=== PATIENT | female | born 1940 | race Caucasian/White ===

== ENCOUNTER 2017-05-18 10:07 | Outpatient (CLI) | payer MEDICARE ==
--- NOTE | 2017-05-18 11:58 | ULT ---
ULTRASOUND ABDOMEN COMPLETE: HISTORY: 77-year-old female with nausea and vomiting. R11.2 FINDINGS: Liver: Normal echogenicity and size. Gallbladder: There are several moderately large gallstones, each on the order of approximately 25 mm. Gallbladder lumen is mildly distended. Gallbladder wall is borderline thickened to approximately 3 m m. No sonographic Ackerman's sign. No pericholecystic fluid. Common duct: 6 mm Spleen: No splenomegaly. Pancreas: Nonspecific sonographic appearance. Kidneys: No hydronephrosis. Tiny echogenic foci at the bilateral kidneys may or may not represent wendy culi. Abdominal aorta: Extensive atherosclerotic calcification. There is a focal saccular small aneurysm pr otruding anteriorly from the midabdominal aorta. The neck of the aneurysm is approximately 1.5 to 2 c m. The anteroposterior dimension of the aneurysm measured from the anterior surface of the nondilated portion of the abdominal aorta, is approximately 1 cm. The overall anteroposterior dimension of the abdominal aorta including the saccular aneurysm, is approximately 2.5 cm. There is no fusiform aneury sm, (defined as 3 centimeter or larger). Inferior vena cava: Unremarkable. IMPRESSION: 1. 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 2. Positive for cholelithiasis, with moderately large gallstones. PRECIOUS Maldon[place] POS: [facility]
== END 2017-05-18 10:08 | disposition home or self-care (01) ==
LOC: ULT 10:07
PROVIDERS: ATTEND Internal Medicine
DX: R11.2 Nausea with vomiting, unspecified (principal); I71.4 Abdominal aortic aneurysm, without rupture; K80.20 Calculus of gallbladder without cholecystitis without obstruction; K80.80 Other cholelithiasis without obstruction
CPT/HCPCS: 76700

== ENCOUNTER 2018-03-26 14:09 | Outpatient (CLI) | payer MEDICARE ==
[2018-03-26 15:45] LABS: #Basophils 0.1 thou/uL (0.0-0.2); #Eosinphils 0.3 thou/uL (0.0-0.7); #Lymphocytes 3.1 thou/uL (1.20-3.40); #Monocytes 0.7 thou/uL (0.11-0.59); #Neutrophils 5.6 thou/uL (1.40-6.50); %Basophils 0.7 % (0.0-1.0); %Lymphocytes 31.8 % (21.0-51.0); %Monocytes 7.4 % (0.0-10.0); %Neutrophils 57.1 % (42.0-75.0); Hemoglobin 12.3 g/dL (12.0-16.0); Mean Corpuscular Hemoglobin 28.6 pg (27.0-31.0); Mean Corpuscular Volume 89.4 fL (78.0-98.0); Mean Platelet Volume 7.5 fL (7.4-10.4); Platelet Count 233 thou/uL (130-400); RBC Distribution Width 13.3 % (11.5-14.5); Red Blood Cell (RBC) Count 4.29 mill/uL (4.20-5.40); White Blood Cell (WBC) Count 9.8 thou/uL (4.8-10.8)
[2018-03-26 16:07] LABS: Anion Gap 14 mmol/L (10-20); BUN (Urea Nitrogen) 14 mg/dL (9.8-20.1); Calc. Creatinine Clearance 0 mL/min (70-130); Carbon Dioxide 24 mmol/L (23-31); Chloride 108 mmol/L (98-107); Estimated GFR-MDRD 68; Glucose 89 mg/dL (83-110); Sodium 141 mmol/L (136-145)
--- NOTE | 2018-03-27 12:51 | EKG ---
Test Reason : Blood Pressure : / mmHG Vent. Rate : 060 BPM Atrial Rate : 060 BPM P-R Int : 192 ms QRS Dur : 094 ms QT Int : 418 ms P-R-T Axes : -18 009 054 degrees QTc Int : 418 ms Normal sinus rhythm Cannot rule out Inferior infarct (cited on or before 07-OCT-2014) Cannot rule out Anterior infarct , age undetermined Abnormal ECG Confirmed by CK AOCSTA ([id number]) on 03/27/2018 12:50:50 PM Referred By: SHIRA Confirmed By:CK ACOSTA
== END 2018-03-26 14:10 | disposition home or self-care (01) ==
LOC: LABBT 14:09
PROVIDERS: ATTEND Internal Medicine Cardiovascular Disease
DX: Z01.818 Encounter for other preprocedural examination (principal); I35.0 Nonrheumatic aortic (valve) stenosis
CPT/HCPCS: 80048; 85025; 93005; 93010

== ENCOUNTER 2018-03-28 06:31 | Day surgery (SDC) | payer MEDICARE ==
[2018-03-26 14:30] VITALS: BMI 21.4
[2018-03-28] MEDS ORDERED: PROPOFOL 40 ML ONE (07:13)
[2018-03-28] MEDS ORDERED: PROPOFOL 200 MG/20 ML VIAL ONE (11:30)
--- NOTE | 2018-03-28 12:24 | DIS ---
She was seen in the outpatient facility today to undergo planned transesophageal echocardiogram. Her other diagnoses include stenosis, mitral valve regurgitation, and tricuspid regurgitation, history o f atrial fibrillation, status post electrical cardioversion, left atrial dilatation, hypothyroidism, hypertension as well as hypercholesterolemia, and diabetes. DISCHARGE DIAGNOSES: Stenosis, mitral valve regurgitation, and tricuspid regurgitation, history of a trial fibrillation, status post electrical cardioversion, left atrial dilatation, hypothyroidism, hyp ertension as well as hypercholesterolemia, and diabetes. PROCEDURE IN HOSPITAL: Include transesophageal echocardiogram. DISCHARGE MEDICATIONS: Same as her admission medications that include metformin 500 mg 1 b.i.d., Tir osint 75 mcg daily, aspirin 325 mg daily, lisinopril 20 mg a day in the morning and 10 mg q.p.m., fle cainide 50 mg b.i.d., and atorvastatin 40 mg daily. I will see her back in the office about a month ago. We will sent her information to [place] for kash luation of possible mitral valve repair or replacement and hopefully by minimally invasive procedure. She will continue routine followups with Dr. Cali, the procedure was just a transesophageal echocar diogram, no cardioversion was performed. The patient was in sinus rhythm. Hospital course is otherw ise unremarkable. We will see her back as planned.
--- NOTE | 2018-03-28 22:33 | ECHO ---
DATE OF PROCEDURE: 03/28/2018 INDICATION FOR PROCEDURE: A 77-year-old female with a history of mitral valve regurgitation, mitral valve stenosis. Left atri al dilatation, History of atrial fibrillation. She underwent the procedure to evaluate more closely the aortic valve to determine the leaflets evaluation also determine exactly whether or not she has severe mitral valve stenosis. She was taken to recovery area where she underwent short acting propof ol, the transesophageal probe was easily passed down the distal esophagus. OVERALL IMPRESSION: 1. Normal left ventricular systolic function. Ejection fraction, 60-65%. 2. Moderate to severe mitral valve stenosis. The mitral valve area is calculated at 1.4 cm2. 3. Aortic valve sclerosis, but no evidence of critical stenosis. She has mild aortic valve stenosis . The gradient across the valve was less than 25 mmHg. The aortic valve leaflets are sclerotic but a re not severely stenosed. She also has severe mitral valve regurgitation, moderate tricuspid valve r egurgitation. There is no evidence of left atrial or left atrial appendage thrombus. Left atrium di lated at 5.2 cm. There were no difficulties or complications encountered.
== END 2018-03-28 10:15 | disposition home or self-care (01) ==
LOC: CCL 06:31
PROVIDERS: ATTEND Internal Medicine Cardiovascular Disease
DX: I08.3 Combined rheumatic disorders of mitral, aortic and tricuspid valves (principal); E03.9 Hypothyroidism, unspecified; I10 Essential (primary) hypertension; E78.00 Pure hypercholesterolemia, unspecified; E11.9 Type 2 diabetes mellitus without complications; Z79.899 Other long term (current) drug therapy; Z79.82 Long term (current) use of aspirin; Z98.890 Other specified postprocedural states
CPT/HCPCS: 93312; J2704

== ENCOUNTER 2018-08-15 07:55 | Outpatient (CLI) | payer MEDICARE ==
--- NOTE | 2018-08-15 08:53 | RAD ---
PA AND LATERAL CHEST: HISTORY: Pleural effusion. COMPARISON: 09/27/2016 FINDINGS: There are changes of median sternotomy. The heart size is normal. The lungs are well expanded, with out lobar consolidation, jelly pulmonary edema, or pleural effusions. There is mild prominence of th e pulmonary vascularity. Changes of valvular replacement are present. The bones are osteopenic. POS: [facility]
== END 2018-08-15 07:56 | disposition home or self-care (01) ==
LOC: BICRAD 07:55
PROVIDERS: ATTEND Internal Medicine Cardiovascular Disease
DX: J90 Pleural effusion, not elsewhere classified (principal); M85.80 Other specified disorders of bone density and structure, unspecified site; Z98.890 Other specified postprocedural states; Z95.4 Presence of other heart-valve replacement
CPT/HCPCS: 71046

== ENCOUNTER 2020-02-23 21:11 | Emergency (ER) | payer MEDICARE ==
--- NOTE | 2020-02-23 21:50 | RAD ---
RADIOGRAPH CHEST 1 VIEW: DATE: 02/23/2020 HISTORY: 79-year-old female with chest pain FINDINGS: The thoracic aorta is tortuous and ectatic. There is no evidence of airspace density, pulmonary edema , cardiomegaly, or pneumothorax. The lateral costophrenic angles are not effaced. There are sternotomy wires. IMPRESSION: 1) No acute cardiopulmonary findings. 2) ectasia of thoracic aorta.
[2020-02-23 21:59] LABS: #Eosinphils 0.4 thou/uL (0.0-0.7); #Lymphocytes 2.4 thou/uL (1.20-3.40); #Monocytes 0.6 thou/uL (0.11-0.59); %Basophils 0.6 % (0.0-1.0); %Eosinophils 4.7 % (0.0-10.0); %Lymphocytes 32.7 % (21.0-51.0); %Monocytes 7.7 % (0.0-10.0); %Neutrophils 54.4 % (42.0-75.0); Hemoglobin 13.2 g/dL (12.0-16.0); Mean Corpuscular HGB CONC 31.9 g/dL (32.0-36.0); Mean Corpuscular Hemoglobin 27.7 pg (27.0-31.0); Mean Corpuscular Volume 86.6 fL (78.0-98.0); Mean Platelet Volume 7.5 fL (7.4-10.4); Platelet Count 297 thou/uL (130-400); RBC Distribution Width 13.5 % (11.5-14.5); Red Blood Cell (RBC) Count 4.76 mill/uL (4.20-5.40); White Blood Cell (WBC) Count 7.4 thou/uL (4.8-10.8)
[2020-02-23 22:02] LABS: INR-International Normal Ratio 0.9; PTT 34.2 sec (22.9-36.1); Prothrombin Time 12.6 sec (12.0-14.7)
[2020-02-23 22:16] LABS: ALT (SGPT) 10 U/L (8-55); AST (SGOT) 17 U/L (5-34); Albumin 4.2 g/dL (3.4-4.8); Alkaline Phosphatase 96 U/L (40-110); Anion Gap 17 mmol/L (10-20); BUN (Urea Nitrogen) 23 mg/dL (9.8-20.1); Bilirubin, Total 0.4 mg/dL (0.2-1.2); CK (CPK) 38 U/L (29-168); Calc. Creatinine Clearance 0 mL/min (70-130); Calcium 9.7 mg/dL (7.8-10.44); Carbon Dioxide 27 mmol/L (23-31); Chloride 97 mmol/L (98-107); Estimated GFR-MDRD 46; Globulin 3.5 g/dL (2.4-3.5); Glucose 106 mg/dL (83-110); Lipase 30 U/L (8-78); Potassium 4.5 mmol/L (3.5-5.1); Protein, Total 7.7 g/dL (6.0-8.3); Sodium 136 mmol/L (136-145)
--- NOTE | 2020-02-23 22:33 | CT ---
CT ABDOMEN NONCONTRAST CT PELVIS NONCONTRAST: (Urolithiasis protocol) DATE: 02/23/2020 HISTORY: 79-year-old female with abdominal pain TECHNIQUE: IV injection of iodinated contrast media: None Oral contrast media: None FINDINGS: Other than for urolithiasis, the lack of IV and oral contrast limits the evaluation. There is a 1.5 x 1.3 x 0.9 cm calculus lodged at the left mid ureter. The proximal left ureter superior to the calculus is moderately dilated. The left renal collecting system is moderately dilated. No calculus in kidneys or urinary bladder. Multifocal fusiform ectasia of abdominal aorta with heavily calcified atherosclerotic plaque. Caliber up to 2.7 cm. Clips in gallbladder fossa. No small bowel dilation, pneumoperitoneum, ascites, or pleural effusion. No colonic diverticulitis. Within the limitations of a noncontrast scan, no abnormality identified involving urinary bladder, ri ght kidney, right adrenal, spleen, pancreas, or liver. Left sacral Tarlov cyst.. IMPRESSION: 1) left-sided obstructive uropathy by ureterolithiasis: A large 15 mm left mid ureteral calculus caus ing moderate left hydroureteronephrosis. 2.) Severe atherosclerosis of abdominal aorta. 3) status post cholecystectomy.
[2020-02-23 22:55] LABS: Bacteria/HPF None Seen HPF (None Seen); Bilirubin Negative (Negative); Blood, Urine Negative (Negative); Clarity Clear (Clear); Glucose, Urine (Dipstick) Normal (Negative); Ketone, Urine Negative (Negative); Leukocyte 75 Leu/uL (Negative); Nitrite Negative (Negative); Protein, Urine (Dipstick) Negative (Neg-Trace); RBC/HPF 0-3 HPF (0-3); Specific Gravity, Urine 1.009 (1.002-1.036); Squamous Epithelial 0-3 HPF (0-3); Urobilinogen Normal mg/dL (Less than 2)
[2020-02-24] MEDS ORDERED: Fentanyl 100 MCG/2 ML VIAL ONE ×2 (00:14→02:48)
[2020-02-24] MEDS ORDERED: cefTRIAXone\\ROCEPHIN 2 GM VIAL ONE (00:15)
[2020-02-24] MEDS ORDERED: Ondansetron PF 4 MG/2 ML Vial ONE ×3 (00:15→05:30)
[2020-02-24] MEDS ORDERED: Iothalamate Meglumine 60% 50 ML VIAL FS ONE (02:39)
[2020-02-24] MEDS ORDERED: PROPOFOL 200 MG/20 ML VIAL ONE (03:06)
[2020-02-24] MEDS ORDERED: PHENYLEPHRINE-NS 100 MCG/ML 10 ML SYRINGE ONE (03:06)
[2020-02-24] MEDS ORDERED: Rocuronium Bromide 10 MG/ML (10ML VIAL) ONE (03:06)
[2020-02-24] MEDS ORDERED: Lidocaine 1% PF 5 ML VIAL ONE (03:06)
[2020-02-24] MEDS ORDERED: Esmolol 100 MG/10 ML VIAL ONE (03:06)
[2020-02-24] MEDS ORDERED: Glycopyrrolate 0.2 MG/ML 5 ML SYRINGE ONE (03:06)
--- NOTE | 2020-02-24 03:26 | CON ---
DATE OF CONSULTATION: 02/24/2020 REASON FOR CONSULTATION: Left ureteral stone, intractable left flank pain. REQUESTING PHYSICIAN: Dr. Leo Boateng in the emergency department. HISTORY OF PRESENT ILLNESS: Ms. Dewey is an 79-year-old female, with past urologic history significant for urolithiasis. She required lithotripsy with stent placement several years ago while in [place]. This is the only time she has required surgery for a stone. She had seen Dr. Conn, here locally in the past, last time approximately 6 to 7 years ago. The patient states over the past 3 weeks, she has had worsening left-sided flank pain. She began having some nausea. She has become increasingly weak. She presented to her primary care physician earlier this week and had a KUB. She was told she likely has a stone and she was setup for outpatient followup with Urology. She had acute worsening of her pain over the past several hours, and has become increasingly weak. She presented to the emergency department, at which point, a CT scan was performed. This demonstrated a 1.5 cm mid left ureteral stone with moderate left hydroureteronephrosis. The patient was given multiple doses of IV analgesics and her pain was not completely controlled. Urology was consulted for further evaluation. Currently, the patient states her pain is 6/10. She reports she has been very weak. No fevers. No current nausea. No other complaints. REVIEW OF SYSTEMS: Full 12-point review of systems was performed and is negative other than that mentioned in HPI. PAST MEDICAL HISTORY: 1. Type 2 diabetes. 2. Hypothyroidism. 3. Hypertension. 4. Dyslipidemia. 5. Atrial fibrillation. PAST SURGICAL HISTORY: Appendectomy, hysterectomy, lithotripsy, and aortic valve replacement. FAMILY HISTORY: Noncontributory. SOCIAL HISTORY: She lives at [facility]. She is retired. No tobacco, alcohol, or illicit drugs. ALLERGIES: NO KNOWN DRUG ALLERGIES. MEDICATIONS: 1. Eliquis. 2. Lisinopril. 3. Metformin. PHYSICAL EXAMINATION: VITAL SIGNS: Patient is afebrile. Vital signs are stable. GENERAL: She is alert and oriented x3. No apparent distress. HEENT: Normocephalic and atraumatic. NECK: Supple. No masses or lymphadenopathy. CARDIOVASCULAR: Regular rate and rhythm. PULMONARY: Breathing unlabored. ABDOMEN: Soft, mild tenderness to palpation over the left-sided abdomen. No rebound or guarding. No masses or organomegaly. No suprapubic tenderness to palpation. No CVA tenderness. EXTREMITIES: Warm, well perfused. No edema. NEUROLOGIC: No focal deficits. PSYCHIATRIC: Normal mood and appropriate affect. LABORATORY DATA: White blood cell count 7.4, hemoglobin 13.2, hematocrit 41.3, and platelets 297. Sodium 136, potassium 4.5, chloride 97, bicarb 27, BUN 23, and creatinine 1.13. Urine; 11 to 20 white blood cells per high-power field, 0 to 3 red blood cells per high-power field, and nitrite negative. ASSESSMENT: An 79-year-old female, with 1.5 cm mid left ureteral stone, intractable left flank pain, and left hydronephrosis. PLAN: I reviewed the natural history and clinical implications of ureterolithiasis with the patient in detail. I discussed the minimal chance of spontaneous passage of a stone this size. I discussed options with the patient. Given her intractable pain, weakness, I recommended decompression of her left renal collecting system by left ureteral stent placement. She will require staged left ureteroscopy with laser lithotripsy as an outpatient in the future. This was discussed with she and her daughter. They understand this after risks/benefits/alternatives/possible outcomes were discussed with the patient in detail, she elects to proceed with left ureteral stent placement and all indicated procedures. Job ID: [id number]
[2020-02-24] MEDS ORDERED: Promethazine HCl 25 MG/ML VIAL IM PRN (03:50)
[2020-02-24] MEDS ORDERED: Promethazine HCl 25 MG/ML VIAL SLOW IVP PRN (03:50)
[2020-02-24] MEDS ORDERED: PACU-Morphine 4MG/ML VIAL SLOW IVP PRN (03:50)
[2020-02-24] MEDS ORDERED: HYDROmorphone 2 MG/ML VIAL SLOW IVP PRN (03:50)
[2020-02-24] MEDS ORDERED: Ondansetron HCl/PF 4 MG/2 ML Vial IVP PRN (03:50)
[2020-02-24] MEDS ORDERED: Metoprolol Tartrate 5 MG/5 ML VIAL ONE (04:18)
[2020-02-24] MEDS ORDERED: HYDROcodone/Acetaminophen 5/325 mg Tablet ONE (05:13)
--- NOTE | 2020-02-24 08:11 | RAD ---
EXAM: Retrograde IVP HISTORY: Kidney stones COMPARISON: None FINDINGS/IMPRESSION: Limited intraoperative fluoroscopic views of the retrograde IVP were submitted f or interpretation. There is a 1.2 cm oval calcification along the mid left ureter. There is moderate left hydronephrosis. A double-J ureteral stent extends past to the calcification in the lef t renal collecting system.
--- NOTE | 2020-02-24 08:24 | OP ---
DATE OF PROCEDURE: 02/24/2020 FRONT COUNTER ATTENDANT: None. PREPROCEDURE DIAGNOSIS: Left ureteral calculus. POSTPROCEDURE DIAGNOSIS: Left ureteral calculi x2. PROCEDURE PERFORMED: 1. Cystoscopy with left ureteral stent placement, 4.7-Greenlandic x 26 cm. 2. Left diagnostic ureteroscopy. ANESTHESIA: General endotracheal anesthesia. COMPLICATIONS: None. FLUID: See Anesthesia record. ESTIMATED BLOOD LOSS: Minimal. SPECIMENS: None. POSTPROCEDURE STATUS: Satisfactory. INDICATIONS FOR PROCEDURE: Ms. Dewey is an 79-year-old female with history of urolithiasis. She began having left-sided flank and abdominal pain approximately 3 weeks ago. This acutely worsened. She has become very weak. She presented to the [facility] Emergency Department at which point, she was diagnosed with a 1.5 cm left mid ureteral calculus with moderate left hydroureteronephrosis. Her pain was poorly controlled. Urology was consulted. She elected to proceed with left ureteral stent placement. DESCRIPTION OF PROCEDURE: The patient was taken to the operating room and after successful induction of general endotracheal anesthesia, she was placed in the dorsal lithotomy position. Her genitalia were prepped and draped in usual sterile fashion. A time-out was performed following which a 20-Greenlandic rigid cystoscope was advanced in the patient's urethra and into her bladder. Cystoscopy was normal. The left ureteral orifice was identified. It was cannulated with a 5-Greenlandic open-ended ureteral catheter loaded with an angled Glidewire. We attempted to advance the Glidewire beyond the mid left ureteral stone. However, this was unsuccessful. We did realize that the patient also had a smaller distal left ureteral stone. This was noted on the CT scan, however, felt by the radiologist to be a phlebolith. It was in fact a smaller distal left ureteral stone approximately 6 mm. We were unable to negotiate the wire past the stone. We tried a straight zip wire and also a Sensor wire. We were unable to manipulate any of these beyond the stone. At this point, we performed diagnostic ureteroscopy with a short semi-rigid ureteroscope. The open-ended catheter was removed leaving the Sensor wire in place only up to the level of the stone. Alongside the Sensor wire we performed diagnostic ureteroscopy. We attempted to extract the distal left ureteral stone. However, it was too large to remove without having a laser available for laser lithotripsy. We were able to bypass it with the ureteroscope and go up to the level of the other stone. The ureter was intact. The stone was not all that embedded. It was just very tight given its large size of 1.5 cm. We were able to manipulate the Sensor wire beyond the stone and eventually curl it within the lower pole portion of her bifid renal pelvis. A 50:50 mix of Conray and saline were used to perform a retrograde pyelogram. There was moderate to severe left hydronephrosis proximal to the stone. We removed the ureteroscope leaving the Sensor wire in place. We attempted to place the 5-Greenlandic catheter beyond the stone and were unable to do this. We also tried a dual-lumen catheter as well as the 8-Greenlandic portion of an 8/10 dilator. We were able to easily dilate the distal ureter up to the level of the stone, however, were unable to advance any of these beyond the stone. We also tried the inner 12-Greenlandic portion of a 12/14-Greenlandic ureteral access sheath to dilate and were unable to bypass the stone with this as well. At this point, we elected to attempt placement of a 4.7-Greenlandic stent. We were able to negotiate the 4.7-Greenlandic x 26 cm double-J ureteral stent beyond the stone and upon wire removal a good curl was achieved proximally within the lower pole portion of the patient's bifid renal pelvis and distally within the bladder. The cystoscope was readvanced into the bladder. The patient's bladder was drained. The stent was draining. There was no extravasation of contrast on final retrograde pyelogram. The patient tolerated the procedure well, was awoken from anesthesia and transferred to PACU in satisfactory condition. PLAN: The patient will be discharged home. She will be sent home on p.o. antibiotics and pain medication. She will follow up as an outpatient to schedule definitive management of this stone by ureteroscopy with laser lithotripsy. Job ID: [id number]
--- NOTE | 2020-03-04 16:54 | EKG ---
Test Reason : Blood Pressure : / mmHG Vent. Rate : 085 BPM Atrial Rate : 468 BPM P-R Int : 000 ms QRS Dur : 076 ms QT Int : 360 ms P-R-T Axes : 000 -10 -10 degrees QTc Int : 428 ms Atrial fibrillation with premature ventricular or aberrantly conducted complexes Inferior infarct , age undetermined Abnormal ECG Confirmed by MARY HAMPTON, JAZMINE ([id number]), video effects editor ELANA MARQUEZ ([id number]) on 03/04/2020 4:53:41 PM Referred By: Confirmed By:JAZMINE HERNANDEZ MD
== END 2020-02-24 03:16 | disposition admitted as inpatient to this hospital (09) ==
LOC: ERS 21:11
PROC: 0T9780Z Drainage of Left Ureter with Drainage Device, Via Natural or Artificial Opening Endoscopic (ICD-10-PCS; principal; 2020-02-24)
DX: N13.2 Hydronephrosis with renal and ureteral calculous obstruction (principal); I48.91 Unspecified atrial fibrillation; E11.9 Type 2 diabetes mellitus without complications; E03.9 Hypothyroidism, unspecified; E78.5 Hyperlipidemia, unspecified; I10 Essential (primary) hypertension; Z79.899 Other long term (current) drug therapy
CPT/HCPCS: 71045; 74176; 74420; 80053; 81003; 81015; 82550; 83690; 84484; 85025; 85610; 85730; 87086; 93005; 96361; 96365; 96375; J0696; J2405; J2704; J3010

== ENCOUNTER 2020-02-27 16:02 | Inpatient (IN) | payer MEDICARE, OTHER ==
[2020-02-27 18:04] VITALS: BMI 21.8
[2020-02-27] MEDS ORDERED: Morphine 2 MG/ML VIAL SLOW IVP PRN (20:26)
[2020-02-27] MEDS: tiZANidine HCl 4 MG TAB PO SCH (20:28)
[2020-02-27] MEDS ORDERED: Apixaban 2.5 MG TAB PO SCH (21:00)
--- NOTE | 2020-02-27 21:13 | PDOC.HHP ---
Hospitalist HPI - History of Present Illness Back pain History of Present Illness: 79-year-old woman with a history of chronic atrial fibrillation status post ablation therapy, on chronic anticoagulation, history of other cardiac surgeries, recently had a left ureteral stent placed for left hydronephrosis s econdary to 1.5 cm ureteral stone 1 week ago was transferred here from [place] ER due to uncontrolled back pain. CT lumbar and thoracic spine done at [place] suggested new thoracic vertebral fracture. It also identified a 1.5 cm ureteral stone and residual left hydronephrosis. Patient reports upper back spasms with all known triggers, maximum pain intensity of 10/10, radiates across the back, no abdominal pain. Patient reportedly vomited a couple of times and not tolerating her medication because of pain. She denied any fever or chills. She denied any dysuria. Urology was contacted who plans to do a lithotripsy next week. Patient needs total assistance with ambulation and transfer. She has visited ED once after the procedure and she is failing outpatient treatment for pain. Patient is admitted for further management. Hospitalist ROS - Review of Systems Other: Except as documented, all other systems reviewed and negative. - Medication Medications: Active Medications Generic Name Dose Route Start Last Admin Trade Name Freq PRN Reason Stop Dose Admin Tizanidine HCl 4 mg 02/27/20 21:00 02/27/20 20:28 Tizanidine Hcl 4 Mg Tab PO 4 mg TID DEB Administration Hospitalist History - Past Medical History Cardiac: reports: AFIB (Paroxysmal), HTN, Hyperlipidemia Gastrointestinal: reports: Other (Gallstones) Endocrine: reports: Diabetes Other Medical History: Abdominal aortic aneurysm, nonrheumatic aortic valve stenosis - Past Surgical History Past Surgical History: reports: Appendectomy, Hysterectomy, Other (Cyst removal from ovary, kidney stone removal, electric cardioversion, cardiac ablation.) - Family History Family History: reports: cardiac disorder (Mild cardiac infarction-brother) - Social History Smoking Status: Former smoker Alcohol: reports: None Drugs: reports: none Living Situation: With Family - Exam General Appearance: NAD, awake alert Eye: PERRL, anicteric sclera ENT: normocephalic atraumatic, moist mucosa Neck: supple, symmetric, no JVD, no thyromegaly Heart: RRR, no murmur, no gallops Respiratory: CTAB, no wheezes, no rales, no ronchi Gastrointestinal: soft, non-tender, non-distended Extremities: no cyanosis, no clubbing, no edema Skin: normal turgor Neurological: cranial nerve grossly intact, no focal deficits, no new deficit Musculoskeletal: normal tone, normal strength Musculoskeletal - other findings: Back brace in place Psychiatric: normal affect, A&O x 3 Hospitalist Results - Radiology Interpretation Other Additional Comment: Thoracic lumbar spine: New compression fracture T8 with mild anterior wedging. Stable anterior wedging at T6, mild disc bulge at T7-T8 and T8-T9. CT lumbar spine: Persistent dilatation of the left intrarenal and extrarenal collecting system despite the placement of a left ureteral stent. Large calculus at the L4 level which as noted in the previous Stone CT. Hospitalist H&P A/P - Problem (1) Intractable back pain Code(s): M54.9 - DORSALGIA, UNSPECIFIED Status: Acute (2) Vertebral compression fracture Code(s): M48.50XA - COLLAPSED VERTEBRA, NEC, SITE UNSP, INIT Status: Acute (3) Nephrolithiasis Status: Acute (4) Hydroureter Code(s): N13.4 - HYDROURETER Status: Acute (5) Hydronephrosis Code(s): N13.30 - UNSPECIFIED HYDRONEPHROSIS Status: Acute (6) Paroxysmal atrial fibrillation Code(s): I48.0 - PAROXYSMAL ATRIAL FIBRILLATION Status: Acute - Plan Plan: Admit patient to the medical floor. Pain management with IV opioids-IV morphine, and oral [place]. Consult to urology. Back brace. PT and OT consult. Continue other home medications-metoprolol and apixaban for A. fib. Hold apixaban couple of days before lithotripsy scheduled for Monday next week Continue antihypertensives. Monitor renal function.
[2020-02-27] MEDS: Metoprolol Tartrate 25 MG TAB PO SCH (22:09)
[2020-02-27] MEDS: Atorvastatin Calcium 40 MG TAB PO SCH (22:10)
[2020-02-27] MEDS: Sodium Chloride 0.9% 1,000 ML IV SCH (22:11)
--- NOTE | 2020-02-28 00:33 | CON ---
DATE OF CONSULTATION: 02/27/2020 CHIEF COMPLAINT: Back pain. HISTORY OF PRESENT ILLNESS: Ms. Dewey is an 79-year-old female who presents to [facility] with complaints of diffuse back pain. She was seen in the emergency room on Monday, diagnosed with a 1.5 cm left ureteral stone. She underwent a stent placement during that visit and followed up with Dr. Silva. Neurosurgery was consulted due to a compression fracture found at T8 with loss of height, estimating 20%. The image was compared to a August 15, 2018 prior exam. When I visited Ms. Dewey today, she was wearing a TLSO brace. She is awake and alert, in no acute distress. She has free active range of motion of all extremities. No focal motor weakness. No reflex asymmetry. REVIEW OF SYSTEMS: CONSTITUTIONAL: Denies fever or chills. ENT: Denies change in vision or hearing. CARDIAC: Denies chest pain, shortness of breath, or diaphoresis. PULMONARY: Denies shortness of breath, cough, or hemoptysis. GI: Denies abdominal pain, nausea, vomiting, diarrhea, change in stool formation and consistency. : Denies trouble with urination, frequency of urination, or bloody urine. SKIN: Denies skin rash, bruising, bleeding, or skin masses. MUSCULOSKELETAL: As per history of present illness. NEUROLOGICAL: As per history of present illness. PSYCHOLOGICAL: Denies anxiety, depression, or behavior changes. MEDICAL HISTORY: Coronary artery disease, arrhythmia, atrial fibrillation, diabetes type 2, hypothyroidism, hyperlipidemia, and hypertension. SURGICAL HISTORY: Cholecystectomy, appendectomy, hysterectomy, open-heart surgery, and CABG. SOCIAL HISTORY: Denies nicotine, illicit drugs, or alcohol. ALLERGIES: CONTRAST DYE. CURRENT MEDICATIONS: 1. Atorvastatin 40 mg. 2. Eliquis 2.5. 3. Levothyroxine 75 mcg. 4. Lisinopril/hydrochlorothiazide 10/12.5 mg. 5. Metformin 500 mg. 6. Metoprolol 25 mg. 7. Baby aspirin. PHYSICAL EXAMINATION: VITAL SIGNS: Blood pressure 124/70, pulse 84, respiratory rate 18, and temperature 98.6. HEENT: Pupils are equal. Extraocular movements are intact. NECK: Soft, supple. No masses are noted. EXTREMITIES: Range of motion is intact and nonpainful. NEUROLOGIC: Awake, alert, and oriented x3. Memory, attention, and fund of knowledge normal. Cranial nerves are grossly intact. Upper extremity, 5/5 bilateral strength in her deltoids, biceps, triceps, wrist extension, finger extension, finger intrinsics. Sensation is equal bilaterally. Lower extremities, 5/5 bilateral strength in her iliopsoas, quadriceps, hamstrings, anterior tib, EHL, and gastrocnemius. There is no area of dermatomal sensory loss. The toes are downgoing. IMAGING: CT of thoracic spine, compression fracture at T8 with estimated height loss 20%. There is a mild disk bulge at T7-T8 and T8-T9. Lumbar spine CT, vacuum disk phenomenon at L3-L4 and L5-S1. PLAN: During exam when palpating Ms. Dewey's thoracic and lumbar spine, there was no pain suggesting this is a chronic compression fracture verse an acute compression fracture. Due to no tenderness while palpating, I do not recommend followup at this time or surgical intervention. May wear TLSO brace for pain while walking or standing. Does not have to wear brace due to a chronic compression fracture. Job ID: [id number] [facility]
[2020-02-28] MEDS: traMADol HCl 50 MG TAB PO PRN ×3 (03:34→13:54)
[2020-02-28 05:40] LABS: #Eosinphils 0.5 thou/uL (0.0-0.7); #Lymphocytes 1.8 thou/uL (1.20-3.40); #Monocytes 0.6 thou/uL (0.11-0.59); #Neutrophils 2.9 thou/uL (1.40-6.50); %Basophils 0.6 % (0.0-1.0); %Eosinophils 8.4 % (0.0-10.0); %Lymphocytes 31.5 % (21.0-51.0); %Monocytes 9.8 % (0.0-10.0); %Neutrophils 49.7 % (42.0-75.0); Hemoglobin 10.4 g/dL (12.0-16.0); Mean Corpuscular Volume 88.1 fL (78.0-98.0); Mean Platelet Volume 6.5 fL (7.4-10.4); Platelet Count 305 thou/uL (130-400); RBC Distribution Width 13.6 % (11.5-14.5); White Blood Cell (WBC) Count 5.8 thou/uL (4.8-10.8)
[2020-02-28] MEDS: Senokot S 8.6-50 MG TAB PO PRN (05:43)
[2020-02-28] MEDS: Levothyroxine Sodium 75 MCG TAB PO SCH (05:43)
[2020-02-28 06:01] LABS: Albumin 3.2 g/dL (3.4-4.8); Anion Gap 9 mmol/L (10-20); BUN (Urea Nitrogen) 9 mg/dL (9.8-20.1); Calc. Creatinine Clearance 55 mL/min (70-130); Calcium 8.5 mg/dL (7.8-10.44); Carbon Dioxide 28 mmol/L (23-31); Chloride 104 mmol/L (98-107); Estimated GFR-MDRD 74; Glucose 94 mg/dL (83-110); Phosphorus 3.2 mg/dL (2.3-4.7); Potassium 4.3 mmol/L (3.5-5.1); Sodium 137 mmol/L (136-145)
[2020-02-28] MEDS ORDERED: FLU VACC QS2020-21(65YR UP)/PF 240 MCG/0.7 ML SYRINGE IM ONE (09:00)
[2020-02-28] MEDS ORDERED: Enoxaparin Sodium 40 MG/0.4 ML SYRINGE SC SCH (09:00)
[2020-02-28] MEDS: Enoxaparin Sodium 60 MG/0.6 ML SYRINGE SC SCH ×2 (09:10→20:12)
[2020-02-28] MEDS: Aspirin Chewable 81 MG TAB PO SCH (09:11)
[2020-02-28] MEDS: tiZANidine HCl 4 MG TAB PO SCH ×2 (09:11→15:39)
[2020-02-28] MEDS: Metoprolol Tartrate 25 MG TAB PO SCH ×2 (09:11→20:07)
[2020-02-28] MEDS: Lisinopril/Hydrochlorothiazide 10 mg/12.5 mg Tablet PO SCH (09:12)
[2020-02-28] MEDS ORDERED: Bisacodyl 10 MG SUPP PR PRN (09:46)
[2020-02-28] MEDS ORDERED: Bisacodyl 5 MG TAB PO PRN (09:46)
--- NOTE | 2020-02-28 16:03 | PDOC.HOSPP ---
- Subjective Encounter Date: 02/28/20 Encounter Time: 11:00 Subjective: Patient seen for follow-up regarding nephrolithiasis. Complains of constipation. Back pain is better. - Objective Vital Signs & Weight: Vital Signs (12 hours) Temp Pulse Resp BP Pulse Ox 02/28/20 09:12 97 02/28/20 08:09 96.1 F L 97 18 130/76 96 02/28/20 08:00 20 L Weight Weight 127 lb 4.8 oz I&O: 02/27/20 02/28/20 02/29/20 06:59 06:59 06:59 Intake Total 210 Balance 210 Result Diagrams: 02/28/20 05:29 02/28/20 05:29 Additional Labs: Accuchecks 02/28/20 05:48 POC Glucose 85 I reviewed patient's labs and [facility] Hospitalist ROS - Review of Systems Gastrointestinal: reports: constipation. denies: nausea, vomiting, abdominal pain, diarrhea, melena, hematochezia Genitourinary: denies: dysuria, frequency, incontinence, hematuria, retention Musculoskeletal: reports: back pain - Medication Medications: Active Medications Generic Name Dose Route Start Last Admin Trade Name Freq PRN Reason Stop Dose Admin Aspirin 81 mg 02/28/20 09:00 02/28/20 09:11 Aspirin Chewable 81 Mg Tab PO 81 mg DAILY DEB Administration Atorvastatin Calcium 40 mg 02/27/20 21:00 02/27/20 22:10 Atorvastatin Calcium 40 Mg Tab PO 40 mg HS DEB Administration Bisacodyl 10 mg 02/28/20 09:46 02/28/20 12:04 Bisacodyl 10 Mg Supp [place] 10 mg DAILYPRN PRN Administration Constipation Bisacodyl 10 mg 02/28/20 09:46 02/28/20 13:54 Bisacodyl 5 Mg Tab PO 10 mg DAILYPRN PRN Administration Constipation Enoxaparin Sodium 60 mg 02/28/20 09:00 02/28/20 09:10 Enoxaparin Sodium 60 Mg/0.6 Ml Syringe SC 03/01/20 11:00 60 mg 0900,2100 DEB Administration Lisinopril/HCTZ 0.5 tab 02/28/20 09:00 02/28/20 09:12 Lisinopril/Hydrochlorothiazide 10 Mg/12.5 Mg Tablet PO 0.5 tab DAILY DEB Administration Sodium Chloride 1,000 mls @ 50 mls/hr 02/27/20 20:30 02/27/20 22:11 Normal Saline 0.9% IV 1,000 mls .Q20H DEB Administration Levothyroxine Sodium 75 mcg 02/28/20 06:00 02/28/20 05:43 Levothyroxine Sodium 75 Mcg Tab PO 75 mcg 0600 DEB Administration Metoprolol Tartrate 12.5 mg 02/27/20 21:00 02/28/20 09:11 Metoprolol Tartrate 25 Mg Tab PO 12.5 mg BID DEB Administration Senna/Docusate Sodium 2 tab 02/28/20 03:39 02/28/20 05:43 Senokot S 8.6-50 Mg Tab PO 2 tab BID PRN Administration Constipation Tizanidine HCl 4 mg 02/27/20 21:00 02/28/20 15:39 Tizanidine Hcl 4 Mg Tab PO 4 mg TID DEB Administration Tramadol HCl 50 mg 02/27/20 19:38 02/28/20 13:54 Tramadol Hcl 50 Mg Tab PO 50 mg Q4H PRN Administration Mild Pain (1-3) - Exam General Appearance: awake alert Eye: anicteric sclera ENT: moist mucosa Neck: supple Heart: RRR Respiratory: CTAB Gastrointestinal: soft, non-tender Extremities: no cyanosis Skin: no rashes Psychiatric: normal affect, normal behavior Hosp A/P - Plan - Problem (1) Nephrolithiasis Status: Acute (2) Vertebral compression fracture Code(s): M48.50XA - COLLAPSED VERTEBRA, NEC, SITE UNSP, INIT Status: Acute (3) Intractable back pain Code(s): M54.9 - DORSALGIA, UNSPECIFIED Status: Acute (4) Hydroureter Code(s): N13.4 - HYDROURETER Status: Acute (5) Hydronephrosis Code(s): N13.30 - UNSPECIFIED HYDRONEPHROSIS Status: Acute (6) Paroxysmal atrial fibrillation Code(s): I48.0 - PAROXYSMAL ATRIAL FIBRILLATION Status: Chronic - Plan Continue pain medications. Discontinue apixaban, start therapeutic Lovenox. Hold Lovenox from the night prior to procedure on Monday. Urology service consulted, planning procedure on Monday. Back brace. Appreciate neurosurgery input. PT and OT consult. Start naloxegol. Start metformin.
[2020-02-28] MEDS: Sodium Chloride 0.9% 1,000 ML IV SCH (18:05)
[2020-02-28] MEDS: metFORMIN 500 MG TAB PO SCH (18:17)
[2020-02-28] MEDS ORDERED: Dextrose 50% Abboject 50 ML SYRINGE SLOW IVP PRN (18:40)
[2020-02-28] MEDS ORDERED: Dextrose 5% in Water 1,000 ML IV PRN (18:40)
[2020-02-28] MEDS ORDERED: HumaLOG 300 UNITS/3 ML VIAL SC PRN (18:40)
[2020-02-28] MEDS ORDERED: Mineral Oil ENEMA PR PRN (18:41)
[2020-02-28 19:48] LABS: SARS-CoV-2 MS2 Positive; SARS-CoV-2 N Gene Negative; SARS-CoV-2 S Gene Negative; SARS-CoV-2 by NAA Not Detected (NotDetected); SARS-CoV-2 orf1ab Negative
[2020-02-28] MEDS: Atorvastatin Calcium 40 MG TAB PO SCH (20:08)
[2020-02-28] MEDS: Cipro 250 MG TAB PO SCH (20:09)
--- NOTE | 2020-02-28 20:44 | CON ---
DATE OF CONSULTATION: 02/28/2020 HISTORY OF PRESENT ILLNESS: This is an 79-year-old white female, whom I saw on February 24, in my office on referral from Dr. Cali. He has been her physician for a while and he had seen her shortly before that time when she was having right-sided flank and abdominal pain. He ordered an ultrasound and found that she had a left proximal ureteral stone and hydronephrosis. Her pain was on the opposite side, but this was a finding on her ultrasound. She then developed worsening of pain and this past weekend that would be roughly 5 to 6 days ago. She came into the ER here. Dr. Spencer did a CAT scan and she had a fairly large left proximal ureteral stone 1.5 cm in size. He also found she had a smaller probably 6 to 8 mm stone in the distal ureter. We took her to the OR and put a stent up and that is when they found that they had this second stone further distal, had a little trouble getting a wire by the stone, had to do ureteroscopy to get up to that region, but has a stent that looks like it is in good position. I saw her in my office on the . She was still having a great deal of back pain, a lot of it up high in her thoracic spine region across both shoulders with spasm, some down low, occasionally on the left side, occasionally on the right side, off and on both sides, and she was feeling very miserable with it. I told her at that point it was unlikely that her back pain was related to the stone and that she needs to check with Dr. Cali about it. She did see Dr. Cali. He referred her to, I think, the ER. She went to the [facility] ER and had CT scans of her lumbar and thoracic spine and was found to have a compression fracture in the thoracic spine, which is uncertain whether it is acute or chronic, but was not there on a previous CT scan. She was transferred from the [facility] to [facility] and admitted for pain control. She was evaluated by the Neurosurgical team and was not felt to be someone requiring surgery, but they put her in a brace of some sort and that is how I think she will be managed in terms of that. She looks like she is probably going to be in the hospital over the weekend. She got a great deal of trouble with constipation currently. So, in terms to get her bowels going and keeping her under pain control, she will probably be in the hospital over the weekend. We had already set her up for ureteroscopy with laser lithotripsy and stone retrieval of 2 stones in the left ureter. This was again discussed with her and her daughter today. We will plan on doing about 2 hours of anesthetic time, if we can't get them all out at that time, we will probably replace the stent and bring her back at another time. She did not have a urinary tract infection on her admission for the stent placement. But, she was sent home on some Cipro, and I have kept her on Cipro 250 mg a day while the stents in place. PAST SURGICAL HISTORY: Her surgical history includes bypass surgery, valve replacement surgery, cholecystectomy, hysterectomy, appendectomy. She has had a prior ureteroscopy at least 2 times and she has also had at least 1 ESWL. She has had cataract surgery. PAST MEDICAL HISTORY: Includes valve disease, hypertension, dysrhythmia (AFib), increased cholesterol, diabetes, and low thyroid. ALLERGIES: SHE HAS ALLERGIES TO IV CONTRAST AND A HEPARIN. MEDICATIONS: Her routine medicines were, 1. Eliquis. 2. Atorvastatin. 3. Levothyroxine. 4. Lisinopril/hydrochlorothiazide. 5. Metformin. 6. Toprol. 7. Aspirin, and she was added Cipro and Tylenol No.3 from her visit last . PHYSICAL EXAMINATION: Her vital signs currently are stable. PLAN: I rediscussed with the patient and her daughter, the procedure that we will be doing this coming Monday. She will be n.p.o. after midnight on Monday. We will keep her on the oral Cipro until then. We will give her most likely some Rocephin as well as Solu-Cortef on-call to the OR this coming Monday for the procedure. Job ID: [id number]
[2020-02-29] MEDS: tiZANidine HCl 4 MG TAB PO SCH ×4 (01:01→21:08)
[2020-02-29] MEDS: Levothyroxine Sodium 75 MCG TAB PO SCH (04:51)
[2020-02-29] MEDS: Enoxaparin Sodium 60 MG/0.6 ML SYRINGE SC SCH ×2 (09:10→21:08)
[2020-02-29] MEDS: Lisinopril/Hydrochlorothiazide 10 mg/12.5 mg Tablet PO SCH (09:10)
[2020-02-29] MEDS: metFORMIN 500 MG TAB PO SCH ×2 (10:19→18:03)
[2020-02-29] MEDS: Metoprolol Tartrate 25 MG TAB PO SCH (10:19)
[2020-02-29] MEDS: Aspirin Chewable 81 MG TAB PO SCH (10:19)
--- NOTE | 2020-02-29 13:33 | PDOC.HOSPP ---
- Subjective Encounter Date: 02/29/20 Encounter Time: 13:31 Subjective: Patient was seen for follow-up regarding hypotension. She denies any chest pain or lightheadedness. She denies any fevers or chills. - Objective Vital Signs & Weight: Vital Signs (12 hours) Temp Pulse Resp BP BP Pulse Ox 02/29/20 13:05 97 02/29/20 13:03 64 90/54 L 02/29/20 12:20 98.3 F 79 16 84/46 L 97 02/29/20 12:03 98.4 F 64 16 69/49 L 92 L 02/29/20 09:10 98 02/29/20 08:02 99.0 F 98 18 109/62 97 02/29/20 08:00 97 Weight Weight 127 lb 4.8 oz I&O: 02/28/20 02/29/20 03/01/20 06:59 06:59 06:59 Intake Total 3048 Balance 3048 Result Diagrams: 02/28/20 05:29 02/28/20 05:29 Additional Labs: Accuchecks 02/29/20 02/28/20 13:03 21:00 POC Glucose 87 169 H I reviewed patient's labs and MAR EKG Reviewed by me: Yes (Telemetry: Atrial fibrillation) Hospitalist ROS - Review of Systems Cardiovascular: denies: chest pain, palpitations, orthopnea, paroxysmal noc. dyspnea, edema, light headedness Gastrointestinal: denies: nausea, vomiting, abdominal pain, diarrhea, constipation, melena, hematochezia - Medication Medications: Active Medications Generic Name Dose Route Start Last Admin Trade Name Freq PRN Reason Stop Dose Admin Aspirin 81 mg 02/28/20 09:00 02/29/20 10:19 Aspirin Chewable 81 Mg Tab PO 81 mg DAILY DEB Administration Atorvastatin Calcium 40 mg 02/27/20 21:00 02/28/20 20:08 Atorvastatin Calcium 40 Mg Tab PO 40 mg HS DEB Administration Bisacodyl 10 mg 02/28/20 09:46 02/28/20 12:04 Bisacodyl 10 Mg Supp [place] 10 mg DAILYPRN PRN Administration Constipation Bisacodyl 10 mg 02/28/20 09:46 02/28/20 13:54 Bisacodyl 5 Mg Tab PO 10 mg DAILYPRN PRN Administration Constipation Ciprofloxacin 250 mg 02/28/20 20:00 02/28/20 20:09 Cipro 250 Mg Tab PO 250 mg 2000 DEB Administration Enoxaparin Sodium 60 mg 02/28/20 09:00 02/29/20 09:10 Enoxaparin Sodium 60 Mg/0.6 Ml Syringe SC 03/01/20 11:00 60 mg 0900,2100 DEB Administration Sodium Chloride 1,000 mls @ 50 mls/hr 02/27/20 20:30 02/28/20 18:05 Normal Saline 0.9% IV 1,000 mls .Q20H DEB Administration Levothyroxine Sodium 75 mcg 02/28/20 06:00 02/29/20 04:51 Levothyroxine Sodium 75 Mcg Tab PO 75 mcg 0600 DEB Administration Metformin HCl 500 mg 02/28/20 17:00 02/29/20 10:19 Metformin 500 Mg Tab PO 500 mg BID-WM DEB Administration Senna/Docusate Sodium 2 tab 02/28/20 03:39 02/28/20 05:43 Senokot S 8.6-50 Mg Tab PO 2 tab BID PRN Administration Constipation Tizanidine HCl 4 mg 02/27/20 21:00 02/29/20 09:10 Tizanidine Hcl 4 Mg Tab PO 4 mg TID DEB Administration Tramadol HCl 50 mg 02/27/20 19:38 02/28/20 13:54 Tramadol Hcl 50 Mg Tab PO 50 mg Q4H PRN Administration Mild Pain (1-3) - Exam General Appearance: awake alert Eye: anicteric sclera ENT: moist mucosa Neck: supple Heart: no rubs, irregular Respiratory: CTAB Gastrointestinal: soft, non-tender Skin: no rashes Psychiatric: normal affect, normal behavior Hosp A/P - Plan - Problem (1) hypotension Status: Acute (2) Nephrolithiasis Status: Acute (3) Vertebral compression fracture Code(s): M48.50XA - COLLAPSED VERTEBRA, NEC, SITE UNSP, INIT Status: Acute (4) Intractable back pain Code(s): M54.9 - DORSALGIA, UNSPECIFIED Status: Acute (5) Hydroureter Code(s): N13.4 - HYDROURETER Status: Acute (6) Hydronephrosis Code(s): N13.30 - UNSPECIFIED HYDRONEPHROSIS Status: Acute (7) Paroxysmal atrial fibrillation Code(s): I48.0 - PAROXYSMAL ATRIAL FIBRILLATION Status: Chronic - Plan Blood pressure is improving with intravenous fluids. Etiology unclear, could be secondary to morning blood pressure medications. Patient is asymptomatic. Continue to monitor. If hypotension persists, will consider vasopressors. Reasonable control of pain. Patient is on Lovenox bridge for procedure. Back brace. Appreciate neurosurgery input. PT and OT consult. Patient had bowel movement yesterday. Continue metformin.
[2020-02-29] MEDS ORDERED: Sodium Chloride 0.9% 250 ML IV SCH (14:00)
[2020-02-29 14:36] LABS: #Eosinphils 0.2 thou/uL (0.0-0.7); #Lymphocytes 2.1 thou/uL (1.20-3.40); #Monocytes 0.7 thou/uL (0.11-0.59); #Neutrophils 6.1 thou/uL (1.40-6.50); %Basophils 0.4 % (0.0-1.0); %Eosinophils 2.4 % (0.0-10.0); %Lymphocytes 23.3 % (21.0-51.0); %Monocytes 7.2 % (0.0-10.0); %Neutrophils 66.7 % (42.0-75.0); Hemoglobin 9.2 g/dL (12.0-16.0); Mean Corpuscular HGB CONC 31.4 g/dL (32.0-36.0); Mean Corpuscular Hemoglobin 28.2 pg (27.0-31.0); Mean Corpuscular Volume 89.6 fL (78.0-98.0); Mean Platelet Volume 6.8 fL (7.4-10.4); Platelet Count 261 thou/uL (130-400); RBC Distribution Width 13.8 % (11.5-14.5); Red Blood Cell (RBC) Count 3.28 mill/uL (4.20-5.40); White Blood Cell (WBC) Count 9.1 thou/uL (4.8-10.8)
[2020-02-29 14:54] LABS: Lactic Acid 0.9 mmol/L (0.5-2.2)
[2020-02-29] MEDS: Sodium Chloride 0.9% 1,000 ML IV SCH ×2 (14:58→18:03)
[2020-02-29 14:59] LABS: ALT (SGPT) Less than 7 U/L (8-55); AST (SGOT) 13 U/L (5-34); Albumin 2.9 g/dL (3.4-4.8); Alkaline Phosphatase 66 U/L (40-110); Anion Gap 11 mmol/L (10-20); BUN (Urea Nitrogen) 8 mg/dL (9.8-20.1); Bilirubin, Total 0.4 mg/dL (0.2-1.2); Calc. Creatinine Clearance 56 mL/min (70-130); Calcium 7.8 mg/dL (7.8-10.44); Carbon Dioxide 23 mmol/L (23-31); Chloride 105 mmol/L (98-107); Estimated GFR-MDRD 77; Globulin 2.2 g/dL (2.4-3.5); Glucose 104 mg/dL (83-110); Potassium 3.9 mmol/L (3.5-5.1); Protein, Total 5.1 g/dL (6.0-8.3); Sodium 135 mmol/L (136-145)
[2020-02-29] MEDS: Vancomycin HCl 1.25 GM in Sodium Chloride 0.9% 250 ML 250 ML IVPB SCH (15:00)
[2020-02-29 15:01] LABS: Troponin I 0.015 ng/mL (< 0.028)
--- NOTE | 2020-02-29 16:05 | RAD ---
PORTABLE CHEST: 02/29/20 HISTORY: Chest pain. COMPARISON: 02/23/20 exam. Heart size is within normal limits for portable technique. Postop sternotomy change and valve replace ment. Chronic lung changes are seen. No focal infiltrates. IMPRESSION: Chronic lung change. POS: OFF
[2020-02-29] MEDS: MEROPENEM 1 GM/50 ML 1 GM in Premix Bag 1 BAG IVPB SCH (18:03)
[2020-02-29 19:50] LABS: Bacteria/HPF 2+ HPF (None Seen); Bilirubin Negative (Negative); Blood, Urine 3+ (Negative); Clarity Turbid (Clear); Glucose, Urine (Dipstick) Normal (Negative); Ketone, Urine Negative (Negative); Leukocyte 75 Leu/uL (Negative); Nitrite Negative (Negative); Protein, Urine (Dipstick) 10 mg/dL (Neg-Trace); Renal Epithelial 0-3 HPF (None Seen); Specific Gravity, Urine 1.005 (1.002-1.036); Squamous Epithelial 0-3 HPF (0-3); Urobilinogen Normal mg/dL (Less than 2); WBC/HPF 0-3 HPF (0-3)
[2020-02-29 19:52] LABS: Urine Culture Reflex Yes Yes
[2020-02-29] MEDS: Cipro 250 MG TAB PO SCH (21:07)
[2020-02-29] MEDS: Atorvastatin Calcium 40 MG TAB PO SCH (21:08)
[2020-02-29 21:41] LABS: Troponin I Less than 0.010 ng/mL (< 0.028)
--- NOTE | 2020-02-29 21:47 | PDOC.EVN ---
Event Note - Event Note Event Note: Nursing called that patient had a 3.1 second pause on telemetry, pt has been in AFib since arrival to tele after code green earlier for hypotension. Patient asymptomatic throughout event, labs ordered and tele strip flagged in chart.
[2020-02-29 22:33] LABS: Anion Gap 14 mmol/L (10-20); BUN (Urea Nitrogen) 7 mg/dL (9.8-20.1); Calc. Creatinine Clearance 57 mL/min (70-130); Calcium 8.2 mg/dL (7.8-10.44); Carbon Dioxide 19 mmol/L (23-31); Chloride 105 mmol/L (98-107); Estimated GFR-MDRD 78; Glucose 99 mg/dL (83-110); Magnesium 1.5 mg/dL (1.6-2.6); Potassium 3.5 mmol/L (3.5-5.1); Sodium 134 mmol/L (136-145)
[2020-03-01] MEDS: MEROPENEM 1 GM/50 ML 1 GM in Premix Bag 1 BAG IVPB SCH ×4 (00:25→23:46)
[2020-03-01 05:13] LABS: #Eosinphils 0.3 thou/uL (0.0-0.7); #Lymphocytes 1.5 thou/uL (1.20-3.40); #Monocytes 0.6 thou/uL (0.11-0.59); #Neutrophils 5.1 thou/uL (1.40-6.50); %Basophils 0.4 % (0.0-1.0); %Eosinophils 4.3 % (0.0-10.0); %Monocytes 7.7 % (0.0-10.0); %Neutrophils 67.5 % (42.0-75.0); Hemoglobin 9.9 g/dL (12.0-16.0); Mean Corpuscular HGB CONC 32.8 g/dL (32.0-36.0); Mean Corpuscular Hemoglobin 28.9 pg (27.0-31.0); Mean Corpuscular Volume 88.3 fL (78.0-98.0); Mean Platelet Volume 6.9 fL (7.4-10.4); Platelet Count 254 thou/uL (130-400); RBC Distribution Width 13.9 % (11.5-14.5); Red Blood Cell (RBC) Count 3.43 mill/uL (4.20-5.40); White Blood Cell (WBC) Count 7.6 thou/uL (4.8-10.8)
[2020-03-01 05:36] LABS: ALT (SGPT) Less than 7 U/L (8-55); AST (SGOT) 12 U/L (5-34); Albumin 2.8 g/dL (3.4-4.8); Alkaline Phosphatase 67 U/L (40-110); Anion Gap 12 mmol/L (10-20); BUN (Urea Nitrogen) 6 mg/dL (9.8-20.1); Bilirubin, Total 0.4 mg/dL (0.2-1.2); Calc. Creatinine Clearance 58 mL/min (70-130); Calcium 8.1 mg/dL (7.8-10.44); Carbon Dioxide 22 mmol/L (23-31); Chloride 106 mmol/L (98-107); Estimated GFR-MDRD 81; Globulin 2.5 g/dL (2.4-3.5); Glucose 99 mg/dL (83-110); Potassium 4.1 mmol/L (3.5-5.1); Protein, Total 5.3 g/dL (6.0-8.3); Sodium 136 mmol/L (136-145)
[2020-03-01] MEDS: Sodium Chloride 0.9% 1,000 ML IV SCH ×2 (05:46→18:45)
[2020-03-01] MEDS: Levothyroxine Sodium 75 MCG TAB PO SCH (05:47)
[2020-03-01] MEDS: Enoxaparin Sodium 60 MG/0.6 ML SYRINGE SC SCH (09:18)
[2020-03-01] MEDS: Aspirin Chewable 81 MG TAB PO SCH (09:18)
[2020-03-01] MEDS: tiZANidine HCl 4 MG TAB PO SCH ×3 (09:18→21:10)
[2020-03-01] MEDS: metFORMIN 500 MG TAB PO SCH ×2 (09:18→16:45)
--- NOTE | 2020-03-01 13:40 | CON ---
DATE OF CONSULTATION: [employer]: Dr. Ovidio Benjamin. REASON FOR CONSULTATION: Sinus pause. HISTORY OF PRESENT ILLNESS: Ms. Dewey is an 79-year-old with previous history of chronic atrial fibrillation, who recently presented with compression fracture. She also has a history of recent nephrolithiasis. She was on the oncology floor, where she developed marked hypotension with blood pressure in the 60s to 70s. She had minimal symptoms. Lilo yamil was called. She was transferred to telemetry monitoring for further assessment. While on telemetry monitoring, she had a 3.1-second pause. The patient does have underlying atrial fibrillation. She had no symptoms. PAST MEDICAL HISTORY: Former tobacco abuse, mitral regurgitation, aortic stenosis, paroxysmal atrial fibrillation, AAA, diabetes mellitus, CAD, AVR, MVR, and hypertension. HOME MEDICATIONS: Include: 1. Eliquis. 2. Levothyroxine. 3. Metformin. 4. Metoprolol. 5. Aspirin. 6. Lisinopril/hydrochlorothiazide. 7. Atorvastatin. FAMILY HISTORY: Positive for CAD. REVIEW OF SYSTEMS: A 10-point review of systems is reviewed and as above, otherwise negative. PHYSICAL EXAMINATION: GENERAL: Patient is a pleasant 79-year-old, who is in no acute distress. The patient appears their stated age. VITAL SIGNS: Blood pressure 102/56, pulse 63, and temperature 97.7. NEUROLOGIC: The patient is alert and oriented x3 with no focal neurologic deficits. HEENT: Sclerae without icterus. Mouth has moist mucous membranes with normal pallor. NECK: No JVD. Carotid upstroke brisk. No bruits bilaterally. LUNGS: Clear to auscultation with unlabored respirations. BACK: No scoliosis or kyphosis. CARDIAC: Irregularly irregular with normal S1 and S2. No S3 or S4 noted. No significant rubs, murmurs, thrills, or gallops noted throughout the precordium. PMI is not displaced. There is no parasternal heave. ABDOMEN: Soft, nontender, nondistended. No peritoneal signs present. No hepatosplenomegaly. No abnormal striae. EXTREMITIES: 2+ femoral and 2+ dorsalis pedis pulses. No cyanosis, clubbing, or edema. SKIN: No gross abnormalities. PERTINENT LABORATORY DATA: Hemoglobin 9.9, hematocrit 30.3. Creatinine 0.7. Echo Doppler dated, 03/01/2020, LVEF 55% to 60%. Mild concentric LVH. Diastolic function cannot be assessed due to atrial fibrillation. [id number] mitral annular calcification in addition to bioprosthetic mitral valve and aortic valve. IMPRESSION: 1. Atrial fibrillation with 3.1-second pause. 2. AVR, MVR. 3. Hypertension. 4. Diabetes mellitus. RECOMMENDATIONS: Ms. Dewey's recent pause is of no current clinical significance. Given underlying atrial fibrillation, 3.1-second pause is within the range of acceptable pauses. She had no current symptoms. We will continue to monitor closely. She does have a planned procedure in the coming days. She will need antibiotic therapy due to MVR and AVR. She has been switched from Eliquis to Lovenox in anticipated procedure. Further recommendation per Dr. Ovidio Benjamin in a.m. Job ID: [id number]
--- NOTE | 2020-03-01 15:18 | PDOC.HOSPP ---
- Subjective Encounter Date: 03/01/20 Encounter Time: 11:00 Subjective: Seen for follow-up regarding nephrolithiasis. Feels better today. - Objective Vital Signs & Weight: Vital Signs (12 hours) Temp Pulse Resp BP BP Pulse Ox 03/01/20 11:08 97.7 F 63 15 102/56 L 97 03/01/20 08:00 96 03/01/20 07:49 97.6 F 79 17 122/61 96 03/01/20 04:00 98.5 F 52 L 13 107/58 L 95 Weight Weight 127 lb 4.8 oz I&O: 02/29/20 03/01/20 03/02/20 06:59 06:59 06:59 Intake Total 3048 2120 Output Total 700 Balance 3048 1420 Result Diagrams: 03/01/20 04:57 03/01/20 04:57 Additional Labs: Accuchecks 03/01/20 03/01/20 02/29/20 11:11 05:50 21:49 POC Glucose 140 H 85 116 H 02/29/20 17:27 POC Glucose 118 H I reviewed patient's labs and MAR EKG Reviewed by me: Yes (Telemetry: Atrial fibrillation) Hospitalist ROS - Review of Systems Cardiovascular: denies: chest pain, palpitations, orthopnea, paroxysmal noc. dyspnea, edema, light headedness Gastrointestinal: denies: nausea, vomiting, abdominal pain, diarrhea, constipation, melena - Medication Medications: Active Medications Generic Name Dose Route Start Last Admin Trade Name Freq PRN Reason Stop Dose Admin Aspirin 81 mg 02/28/20 09:00 03/01/20 09:18 Aspirin Chewable 81 Mg Tab PO 81 mg DAILY DEB Administration Atorvastatin Calcium 40 mg 02/27/20 21:00 02/29/20 21:08 Atorvastatin Calcium 40 Mg Tab PO 40 mg HS DEB Administration Bisacodyl 10 mg 02/28/20 09:46 02/28/20 12:04 Bisacodyl 10 Mg Supp [place] 10 mg DAILYPRN PRN Administration Constipation Bisacodyl 10 mg 02/28/20 09:46 02/28/20 13:54 Bisacodyl 5 Mg Tab PO 10 mg DAILYPRN PRN Administration Constipation Ciprofloxacin 250 mg 02/28/20 20:00 02/29/20 21:07 Cipro 250 Mg Tab PO 250 mg 2000 DEB Administration Meropenem 1 gm/ Device 50 mls @ 200 mls/hr 02/29/20 17:00 03/01/20 09:35 IVPB 50 mls 0900,1700,2300 DEB Administration Vancomycin HCl 1.25 gm/ Sodium 250 mls @ 166.667 mls/hr 02/29/20 15:00 02/29/20 15:00 Chloride IVPB 250 mls 1500 DEB Administration Sodium Chloride 1,000 mls @ 75 mls/hr 02/29/20 16:15 03/01/20 05:46 Normal Saline 0.9% IV 1,000 mls .[id number] DEB Administration Levothyroxine Sodium 75 mcg 02/28/20 06:00 03/01/20 05:47 Levothyroxine Sodium 75 Mcg Tab PO 75 mcg 0600 DEB Administration Metformin HCl 500 mg 02/28/20 17:00 03/01/20 09:18 Metformin 500 Mg Tab PO 500 mg BID-WM DEB Administration Senna/Docusate Sodium 2 tab 02/28/20 03:39 02/28/20 05:43 Senokot S 8.6-50 Mg Tab PO 2 tab BID PRN Administration Constipation Tizanidine HCl 4 mg 02/27/20 21:00 03/01/20 09:18 Tizanidine Hcl 4 Mg Tab PO 4 mg TID DEB Administration Tramadol HCl 50 mg 02/27/20 19:38 02/28/20 13:54 Tramadol Hcl 50 Mg Tab PO 50 mg Q4H PRN Administration Mild Pain (1-3) - Exam General Appearance: awake alert Eye: anicteric sclera ENT: moist mucosa Neck: supple Heart: irregular Respiratory: CTAB Gastrointestinal: soft Skin: no rashes Psychiatric: normal affect, normal behavior Hosp A/P - Plan - Problem (1) Nephrolithiasis Status: Acute (2) sinus pauses Status: Resolved (3) Vertebral compression fracture Code(s): M48.50XA - COLLAPSED VERTEBRA, NEC, SITE UNSP, INIT Status: Acute (4) Intractable back pain Code(s): M54.9 - DORSALGIA, UNSPECIFIED Status: Acute (5) Hydroureter Code(s): N13.4 - HYDROURETER Status: Acute (6) Hydronephrosis Code(s): N13.30 - UNSPECIFIED HYDRONEPHROSIS Status: Acute (7) Paroxysmal atrial fibrillation Code(s): I48.0 - PAROXYSMAL ATRIAL FIBRILLATION Status: Chronic (8) hypotension Status: Resolved - Plan Continue intravenous vancomycin and Zosyn, follow cultures. Reasonable control of pain. Patient is on Lovenox bridge for procedure. Cardiology service consulted regarding sinus pauses.
[2020-03-01] MEDS: Vancomycin HCl 1.25 GM in Sodium Chloride 0.9% 250 ML 250 ML IVPB SCH (16:11)
[2020-03-01] MEDS ORDERED: Magnesium 2 GM/50 ML 2 GM in Premix Bag 1 BAG IVPB SCH (16:15)
[2020-03-01] MEDS: Acetaminophen 325 MG TAB PO PRN (18:39)
[2020-03-01] MEDS: Atorvastatin Calcium 40 MG TAB PO SCH (21:10)
[2020-03-01] MEDS: Cipro 250 MG TAB PO SCH (21:10)
[2020-03-02 04:21] LABS: #Eosinphils 0.2 thou/uL (0.0-0.7); #Lymphocytes 1.7 thou/uL (1.20-3.40); #Monocytes 0.6 thou/uL (0.11-0.59); #Neutrophils 4.9 thou/uL (1.40-6.50); %Basophils 0.2 % (0.0-1.0); %Eosinophils 2.8 % (0.0-10.0); %Lymphocytes 22.5 % (21.0-51.0); %Monocytes 8.4 % (0.0-10.0); %Neutrophils 66.2 % (42.0-75.0); Hemoglobin 9.9 g/dL (12.0-16.0); Mean Corpuscular Volume 87.9 fL (78.0-98.0); Mean Platelet Volume 6.9 fL (7.4-10.4); Platelet Count 272 thou/uL (130-400); RBC Distribution Width 13.8 % (11.5-14.5); Red Blood Cell (RBC) Count 3.42 mill/uL (4.20-5.40); White Blood Cell (WBC) Count 7.3 thou/uL (4.8-10.8)
[2020-03-02] MEDS: Levothyroxine Sodium 75 MCG TAB PO SCH (05:18)
[2020-03-02] MEDS ORDERED: Digoxin 0.5 MG/2 ML AMP SLOW IVP SCH (08:45)
[2020-03-02] MEDS: tiZANidine HCl 4 MG TAB PO SCH ×3 (09:42→20:50)
[2020-03-02] MEDS: metFORMIN 500 MG TAB PO SCH ×2 (09:45→16:55)
[2020-03-02] MEDS: MEROPENEM 1 GM/50 ML 1 GM in Premix Bag 1 BAG IVPB SCH ×3 (09:47→20:50)
[2020-03-02] MEDS: Sodium Chloride 0.9% 1,000 ML IV SCH (09:52)
[2020-03-02] MEDS ORDERED: Lidocaine 1% PF 5 ML VIAL ONE (11:11)
[2020-03-02] MEDS ORDERED: PROPOFOL 200 MG/20 ML VIAL ONE (11:11)
[2020-03-02] MEDS ORDERED: Ondansetron PF 4 MG/2 ML Vial ONE (11:11)
[2020-03-02] MEDS ORDERED: cefTRIAXone\\ROCEPHIN 2 GM VIAL ONE (11:41)
[2020-03-02] MEDS ORDERED: Sodium Chloride 0.9% 100 ML ONE (11:41)
[2020-03-02] MEDS ORDERED: Ioversol 68 % 50 ML VIAL ONE (11:49)
[2020-03-02] MEDS ORDERED: Fentanyl 100 MCG/2 ML VIAL ONE (11:53)
[2020-03-02] MEDS ORDERED: methylPREDNISolone Sod Succ/PF 125 MG/2 ML VIAL ONE (11:54)
[2020-03-02] MEDS ORDERED: Promethazine HCl 25 MG/ML VIAL IM PRN (13:51)
[2020-03-02] MEDS ORDERED: Promethazine HCl 25 MG/ML VIAL SLOW IVP PRN (13:51)
[2020-03-02] MEDS ORDERED: Ondansetron HCl/PF 4 MG/2 ML Vial IVP PRN (13:51)
[2020-03-02] MEDS ORDERED: Esmolol 100 MG/10 ML VIAL ONE (13:55)
[2020-03-02] MEDS ORDERED: Meperidine HCl/PF 25 MG/ML VIAL ONE (14:03)
[2020-03-02] MEDS ORDERED: Digoxin 0.5 MG/2 ML AMP ONE (14:41)
--- NOTE | 2020-03-02 15:07 | RAD ---
RETROGRADE PYELOGRAM: Date: 03/02/2020 HISTORY: Stent placement. FINDINGS: A series of 19 images are obtained. These show contrast injected into the collecting system. Final im ages show a left ureteral stent to have been placed. On some of the more initial images, there is a f illing defect in the ureter at the level of the pelvic brim. This is difficult to definitely visualiz e on the final images. IMPRESSION: Placement of left ureteral stent. POS: GRAHAM
--- NOTE | 2020-03-02 15:24 | PDOC.HOSPP ---
- Subjective Encounter Date: 03/02/20 Encounter Time: 10:00 Subjective: Patient seen for follow-up regarding nephrolithiasis. She denies any chest pain or shortness of breath. - Objective Vital Signs & Weight: Vital Signs (12 hours) Temp Pulse Resp BP BP Pulse Ox 03/02/20 10:20 98.9 F 99 24 H 141/75 H 97 03/02/20 09:29 99.1 F 96 12 139/75 91 L 03/02/20 04:00 99.0 F 87 133/81 100 Weight Weight 127 lb 4.8 oz I&O: 03/01/20 03/02/20 03/03/20 06:59 06:59 06:59 Intake Total 2120 1645 Output Total 700 125 Balance 1420 1645 -125 Result Diagrams: 03/02/20 03:53 03/01/20 04:57 Additional Labs: Accuchecks 03/02/20 03/01/20 03/01/20 06:03 20:43 17:22 POC Glucose 101 H 116 H 98 02/29/20 04:58 POC Glucose 83 I reviewed patient's labs and MAR EKG Reviewed by me: Yes (Telemetry: Atrial fibrillation) Hospitalist ROS - Review of Systems Cardiovascular: denies: chest pain, palpitations, orthopnea, paroxysmal noc. dyspnea, edema, light headedness Genitourinary: denies: dysuria, frequency, incontinence, hematuria, retention - Medication Medications: Active Medications Generic Name Dose Route Start Last Admin Trade Name Freq PRN Reason Stop Dose Admin Acetaminophen 650 mg 03/01/20 18:36 03/01/20 18:39 Acetaminophen 325 Mg Tab PO 650 mg Q6H PRN Administration Headache/Fever or Pain Aspirin 81 mg 02/28/20 09:00 03/01/20 09:18 Aspirin Chewable 81 Mg Tab PO 81 mg DAILY DEB Administration Atorvastatin Calcium 40 mg 02/27/20 21:00 03/01/20 21:10 Atorvastatin Calcium 40 Mg Tab PO 40 mg HS DEB Administration Bisacodyl 10 mg 02/28/20 09:46 02/28/20 12:04 Bisacodyl 10 Mg Supp IN 10 mg DAILYPRN PRN Administration Constipation Bisacodyl 10 mg 02/28/20 09:46 02/28/20 13:54 Bisacodyl 5 Mg Tab PO 10 mg DAILYPRN PRN Administration Constipation Ciprofloxacin 250 mg 02/28/20 20:00 03/01/20 21:10 Cipro 250 Mg Tab PO 250 mg 2000 DEB Administration Vancomycin HCl 1.25 gm/ Sodium 250 mls @ 166.667 mls/hr 02/29/20 15:00 03/01/20 16:11 Chloride IVPB 250 mls 1500 DEB Administration Sodium Chloride 1,000 mls @ 75 mls/hr 02/29/20 16:15 03/02/20 09:52 Normal Saline 0.9% IV Not Given .[id number] DEB Meropenem 1 gm/ Device 50 mls @ 100 mls/hr 03/01/20 17:00 03/02/20 09:47 IVPB 50 mls 0900,1700,2300 DEB Administration Levothyroxine Sodium 75 mcg 02/28/20 06:00 03/02/20 05:18 Levothyroxine Sodium 75 Mcg Tab PO 75 mcg 0600 DEB Administration Metformin HCl 500 mg 02/28/20 17:00 03/02/20 09:45 Metformin 500 Mg Tab PO Not Given BID-WM EDB Senna/Docusate Sodium 2 tab 02/28/20 03:39 02/28/20 05:43 Senokot S 8.6-50 Mg Tab PO 2 tab BID PRN Administration Constipation Tizanidine HCl 4 mg 02/27/20 21:00 03/02/20 09:42 Tizanidine Hcl 4 Mg Tab PO Not Given TID DEB Tramadol HCl 50 mg 02/27/20 19:38 02/28/20 13:54 Tramadol Hcl 50 Mg Tab PO 50 mg Q4H PRN Administration Mild Pain (1-3) - Exam General Appearance: awake alert ENT: moist mucosa Neck: supple Heart: irregular Respiratory: CTAB Gastrointestinal: soft, non-tender Skin: no rashes Psychiatric: normal affect, normal behavior Hosp A/P - Plan - Problem (1) Nephrolithiasis Status: Acute (2) sinus pauses Status: Resolved (3) Vertebral compression fracture Code(s): M48.50XA - COLLAPSED VERTEBRA, NEC, SITE UNSP, INIT Status: Acute (4) Intractable back pain Code(s): M54.9 - DORSALGIA, UNSPECIFIED Status: Acute (5) Hydroureter Code(s): N13.4 - HYDROURETER Status: Acute (6) Hydronephrosis Code(s): N13.30 - UNSPECIFIED HYDRONEPHROSIS Status: Acute (7) Paroxysmal atrial fibrillation Code(s): I48.0 - PAROXYSMAL ATRIAL FIBRILLATION Status: Chronic (8) hypotension Status: Resolved - Plan Patient to have cystoscopy today. Lovenox was held last night. Continue intravenous vancomycin and Zosyn, cultures negative so far. Reasonable control of pain. Beta-karthik is on hold secondary to bradycardia.
[2020-03-02] MEDS ORDERED: Diltiazem HCl 125 MG, Admixture Fee 1 EACH in Sodium Chloride 0.9% 100 ML IVPB SCH (15:30)
[2020-03-02] MEDS: Vancomycin HCl 1.25 GM in Sodium Chloride 0.9% 250 ML 250 ML IVPB SCH (16:55)
[2020-03-02] MEDS: Aspirin Chewable 81 MG TAB PO SCH (16:56)
--- NOTE | 2020-03-02 18:13 | EKG ---
Test Reason : POST OP Blood Pressure : / mmHG Vent. Rate : 104 BPM Atrial Rate : 117 BPM P-R Int : 000 ms QRS Dur : 072 ms QT Int : 360 ms P-R-T Axes : 000 026 012 degrees QTc Int : 473 ms Atrial fibrillation with rapid ventricular response with premature ventricular or aberrantly conducte d complexes Low voltage QRS Cannot rule out Anterior infarct , age undetermined Abnormal ECG Confirmed by DR. Karina KEYES (3) on 03/02/2020 6:13:20 PM Referred By: SEFERINO Confirmed By:DR. Karina KEYES
--- NOTE | 2020-03-02 19:47 | OP ---
DATE OF PROCEDURE: 03/02/2020 PREOPERATIVE DIAGNOSIS: Left ureteral stones x2. POSTOPERATIVE DIAGNOSIS: Left ureteral stones x2. PROCEDURES PERFORMED: Cystoscopy, removal of left stent, left retrograde, left rigid ureteroscopy, laser lithotripsy and stone retrieval of a left lower third ureteral stone measuring 6 to 8 mm and much larger mid to proximal ureteral stone measuring over 1.5 cm. She did have some smaller stone fragment up in her kidney, which we did not go after at this time. ANESTHETIC: General. ESTIMATED BLOOD LOSS: Minimal. DRAINS PLACED: 6 x 22 Polaris without a string attached. Stones were sent for stone analysis. DESCRIPTION OF PROCEDURE: After obtaining written and verbal consent from the patient and after having answered all questions with her and her daughter, she was taken to the operating suite. She has been on routine antibiotics over the weekend as she had been admitted three days ago with a compression fracture of her thoracic spine, was admitted for pain control. She was taken to the operating suite. She was placed in supine position on the treatment table. PlexiPulses were placed on her lower extremities. She was given a general anesthetic and oral obturator intubation. She was carefully placed in the dorsal lithotomy position, sterilely prepped and draped. A fluoroscopy unit was brought in for imaging and placed over her abdomen. The stones were easy to see. Cystoscopy was performed with a 22-Tunisian sheath. This was well lubricated and passed under direct vision through the female urethra into the urinary bladder with the aid of a 30-degree lens and video camera and monitor. The bladder was filled and emptied number of times and then the distal end of the double-J stent was grasped and brought out through the urethral meatus. A guidewire was fed through this and then placed up in the region of the renal pelvis and the stent was removed over the guidewire and discarded. At this point, we went in with a small caliber graduated rigid ureteroscope and passed under direct vision with aid of video camera and monitor through the female urethra into the bladder and up the left ureter. The stone in the lower third of the ureter was encountered and broken up with holmium laser fiber into smaller pieces to the basket and removed. We then passed the rigid scope up to the level of the larger stone. The size of the stone made us look at passing a ureteral sheath. This was done by removing the instruments, passing a dual-lumen catheter over green guidewire to just distal to the stone, injecting contrast to fill out a dilated collecting system above it. Feeding up stiff blue wire, then by the stone up into the area of the renal pelvis, removing the dual-lumen catheter, then bringing into ureteral sheath with obturator and passing that in all over the guidewire up to the region just distal to the large stone. Through this sheath, went up with the rigid scope and used this to break up the stone into smaller and smaller pieces disintegrating a lot of the stone as we went. We used a Nitinol basket to remove the stone pieces. There was a lot of edema at the point where the stone was. The ureter in this area was very inflamed from the stone being there. For this reason, we decided to leave the stent in without a string on it probably for a couple of weeks. So, we then backed out a ureteral sheath under direct vision, we found no evidence of any other stone fragments or ureteral injury to our guidewire. We passed the Pollack catheter into the renal pelvis, injected contrast filling out this upper collecting system, dilated down to the area where the stone was. This ureter was narrowed where the stone was and the ureter distal to it was normal. There was no extravasation. Over this guidewire, I fed a 6 x 22 Polaris double-J stent pushing up into place with the pusher, so its proximal end coiled in the renal pelvis and its distal end coiled in the bladder. At this point, the bladder was drained. The instruments were removed. She was awakened and extubated and taken by stretcher to recovery room. Job ID: [id number]
[2020-03-02] MEDS: Atorvastatin Calcium 40 MG TAB PO SCH (20:51)
[2020-03-02] MEDS: Cipro 250 MG TAB PO SCH (20:51)
[2020-03-03 04:34] LABS: #Lymphocytes 1.1 thou/uL (1.20-3.40); #Monocytes 0.3 thou/uL (0.11-0.59); #Neutrophils 7.6 thou/uL (1.40-6.50); %Basophils 0.1 % (0.0-1.0); %Eosinophils 0.2 % (0.0-10.0); %Monocytes 3.3 % (0.0-10.0); %Neutrophils 84.4 % (42.0-75.0); Hemoglobin 10.2 g/dL (12.0-16.0); Mean Corpuscular Hemoglobin 28.9 pg (27.0-31.0); Mean Corpuscular Volume 87.5 fL (78.0-98.0); Mean Platelet Volume 6.8 fL (7.4-10.4); Platelet Count 291 thou/uL (130-400); RBC Distribution Width 13.7 % (11.5-14.5); Red Blood Cell (RBC) Count 3.54 mill/uL (4.20-5.40)
[2020-03-03] MEDS: Levothyroxine Sodium 75 MCG TAB PO SCH (05:01)
[2020-03-03] MEDS: Sodium Chloride 0.9% 1,000 ML IV SCH (05:01)
[2020-03-03] MEDS: MEROPENEM 1 GM/50 ML 1 GM in Premix Bag 1 BAG IVPB SCH (05:01)
[2020-03-03] MEDS: metFORMIN 500 MG TAB PO SCH ×2 (08:27→16:36)
[2020-03-03] MEDS: Aspirin Chewable 81 MG TAB PO SCH (08:27)
[2020-03-03] MEDS: tiZANidine HCl 4 MG TAB PO SCH ×3 (08:32→20:56)
[2020-03-03] MEDS ORDERED: Cefdinir 300 MG CAP PO SCH (10:00)
[2020-03-03] MEDS: Acetaminophen 325 MG TAB PO PRN (10:49)
--- NOTE | 2020-03-03 14:26 | PDOC.HOSPP ---
- Subjective Encounter Date: 03/03/20 Encounter Time: 11:00 Subjective: Patient seen for follow-up regarding nephrolithiasis. Feels better today. - Objective Vital Signs & Weight: Vital Signs (12 hours) Temp Pulse Pulse Pulse Resp BP BP 03/03/20 10:58 98.1 F 81 16 03/03/20 08:57 63 72 148/77 H 124/70 03/03/20 07:15 97.8 F 64 17 03/03/20 03:45 98.1 F 56 L 12 BP BP Pulse Ox 03/03/20 10:58 119/54 L 96 03/03/20 08:57 03/03/20 07:15 142/71 H 96 03/03/20 03:45 142/80 H 96 Weight Weight 126 lb I&O: 03/02/20 03/03/20 03/04/20 06:59 06:59 06:59 Intake Total 1645 2480 Output Total 825 Balance 1645 1655 Result Diagrams: 03/03/20 04:13 03/01/20 04:57 Additional Labs: Accuchecks 03/03/20 03/03/20 03/02/20 11:00 05:45 20:38 POC Glucose 114 H 159 H 161 H 03/02/20 16:24 POC Glucose 131 H I reviewed patient's labs and MAR EKG Reviewed by me: Yes (Telemetry: Atrial fibrillation) Hospitalist ROS - Review of Systems Cardiovascular: denies: chest pain, palpitations, orthopnea, paroxysmal noc. dyspnea, edema, light headedness Gastrointestinal: denies: nausea, vomiting, abdominal pain, diarrhea, constipation, melena, hematochezia - Medication Medications: Active Medications Generic Name Dose Route Start Last Admin Trade Name Freq PRN Reason Stop Dose Admin Acetaminophen 650 mg 03/01/20 18:36 03/03/20 10:49 Acetaminophen 325 Mg Tab PO 650 mg Q6H PRN Administration Headache/Fever or Pain Aspirin 81 mg 02/28/20 09:00 03/03/20 08:27 Aspirin Chewable 81 Mg Tab PO 81 mg DAILY DEB Administration Atorvastatin Calcium 40 mg 02/27/20 21:00 03/02/20 20:51 Atorvastatin Calcium 40 Mg Tab PO 40 mg HS DEB Administration Bisacodyl 10 mg 02/28/20 09:46 02/28/20 12:04 Bisacodyl 10 Mg Supp ME 10 mg DAILYPRN PRN Administration Constipation Bisacodyl 10 mg 02/28/20 09:46 02/28/20 13:54 Bisacodyl 5 Mg Tab PO 10 mg DAILYPRN PRN Administration Constipation Ciprofloxacin 250 mg 02/28/20 20:00 03/02/20 20:51 Cipro 250 Mg Tab PO 250 mg 2000 DEB Administration Levothyroxine Sodium 75 mcg 02/28/20 06:00 03/03/20 05:01 Levothyroxine Sodium 75 Mcg Tab PO 75 mcg 0600 DEB Administration Metformin HCl 500 mg 02/28/20 17:00 03/03/20 08:27 Metformin 500 Mg Tab PO 500 mg BID-WM DEB Administration Senna/Docusate Sodium 2 tab 02/28/20 03:39 02/28/20 05:43 Senokot S 8.6-50 Mg Tab PO 2 tab BID PRN Administration Constipation Tizanidine HCl 4 mg 02/27/20 21:00 03/03/20 08:32 Tizanidine Hcl 4 Mg Tab PO Not Given TID DEB Tramadol HCl 50 mg 02/27/20 19:38 02/28/20 13:54 Tramadol Hcl 50 Mg Tab PO 50 mg Q4H PRN Administration Mild Pain (1-3) - Exam General Appearance: awake alert Eye: anicteric sclera ENT: moist mucosa Neck: supple Heart: RRR Respiratory: CTAB Gastrointestinal: soft, non-tender Psychiatric: normal affect, normal behavior Hosp A/P - Plan - Problem (1) Nephrolithiasis Status: Acute (2) sinus pauses Status: Resolved (3) Vertebral compression fracture Code(s): M48.50XA - COLLAPSED VERTEBRA, NEC, SITE UNSP, INIT Status: Acute (4) Intractable back pain Code(s): M54.9 - DORSALGIA, UNSPECIFIED Status: Acute (5) Hydroureter Code(s): N13.4 - HYDROURETER Status: Acute (6) Hydronephrosis Code(s): N13.30 - UNSPECIFIED HYDRONEPHROSIS Status: Acute (7) Paroxysmal atrial fibrillation Code(s): I48.0 - PAROXYSMAL ATRIAL FIBRILLATION Status: Chronic (8) hypotension Status: Resolved - Plan Patient had cystoscopy yesterday. I will resume apixaban starting tonight. Switch antibiotic to Omnicef, cultures negative so far. Reasonable control of pain. Beta-karthik is on hold secondary to bradycardia. Patient will need home health.
--- NOTE | 2020-03-03 17:09 | PDOC.CPN ---
- Subjective Date: 03/03/20 Time: 16:00 Interval history: Atrial fibrillation yesterday agfternoon with RVR. Responded to IV dilt. then bradycardia. Off dilt. and HR is stable with Afib. - Review of Systems General: denies: fever/chills, weight/appetite/sleep changes, night sweats, fatigue Respiratory: denies: cough, congestion, shortness of breath, exercise intolerance Cardiovascular: denies: chest pain, palpitation, edema, paroxysmal nocturnal dyspnea, orthopnea Gastrointestinal: denies: nausea, vomiting, diarrhea, constipation, abd pain, GI bleeding Musculoskeletal: reports: stiffness, arthritis/arthralgias Neurological: reports: weakness - Objective Allergies/Adverse Reactions: Allergies Allergy/AdvReac Type Severity Reaction Status Date / Time heparin Allergy Intermediate Verified 02/27/20 18:02 CONTRAST DYE Allergy Intermediate SHAKING/ Uncoded 02/27/20 18:02 PT COULD NOT SPEAK Visit Medications: Current Medications Acetaminophen (Acetaminophen 325 Mg Tab) 650 mg PO Q6H PRN PRN Reason: Headache/Fever or Pain Last Admin: 03/03/20 10:49 Dose: 650 mg Documented by: Hydrocodone Bitart/Acetaminophen (Hydrocodone/Acetaminophen 5/325 Mg Tablet) 1 tab PO Q4H PRN PRN Reason: Moderate Pain (4-6) Apixaban (Apixaban 2.5 Mg Tab) 2.5 mg PO BID [facility] Aspirin (Aspirin Chewable 81 Mg Tab) 81 mg PO DAILY [facility] Last Admin: 03/03/20 08:27 Dose: 81 mg Documented by: Atorvastatin Calcium (Atorvastatin Calcium 40 Mg Tab) 40 mg PO [facility] Last Admin: 03/02/20 20:51 Dose: 40 mg Documented by: Bisacodyl (Bisacodyl 10 Mg Supp) 10 mg UT DAILYPRN PRN PRN Reason: Constipation Last Admin: 02/28/20 12:04 Dose: 10 mg Documented by: Bisacodyl (Bisacodyl 5 Mg Tab) 10 mg PO DAILYPRN PRN PRN Reason: Constipation Last Admin: 02/28/20 13:54 Dose: 10 mg Documented by: Cefdinir (Cefdinir 300 Mg Cap) 300 mg PO BID [facility] Ciprofloxacin (Cipro 250 Mg Tab) 250 mg PO 2000 [facility] Last Admin: 03/02/20 20:51 Dose: 250 mg Documented by: Dextrose/Water (Dextrose 50% Abboject 50 Ml Syringe) 25 gm SLOW IVP PRN PRN PRN Reason: Hypoglycemia Glucagon (Glucagon 1 Mg/Ml Vial) 1 mg IM PRN PRN PRN Reason: Hypoglycemia Dextrose/Water (D5w) 1,000 mls @ 0 mls/hr IV .Q0M PRN PRN Reason: Hypoglycemia Insulin Human Lispro (Humalog 300 Units/3 Ml Vial) 0 units SC .MILD SLIDING SCALE PRN PRN Reason: Mild Correctional Scale Levothyroxine Sodium (Levothyroxine Sodium 75 Mcg Tab) 75 mcg PO 0600 [facility] Last Admin: 03/03/20 05:01 Dose: 75 mcg Documented by: Metformin HCl (Metformin 500 Mg Tab) 500 mg PO BID-[facility] Last Admin: 03/03/20 16:36 Dose: 500 mg Documented by: Mineral Oil (Mineral Oil Enema) 133 ml UT DAILY PRN PRN Reason: Constipation Miscellaneous Medication (Pharmacy To Dose Vanc/Abx) 1 each IVPB PRN PRN PRN Reason: Pharmacy to dose Morphine Sulfate (Morphine 2 Mg/Ml Vial) 2 mg SLOW IVP Q4H PRN PRN Reason: Severe Pain (7-10) Senna/Docusate Sodium (Senokot S 8.6-50 Mg Tab) 2 tab PO BID PRN PRN Reason: Constipation Last Admin: 02/28/20 05:43 Dose: 2 tab Documented by: Sodium Chloride (Flush - Normal Saline 10 Ml Syringe) 10 ml IVF Q12HR PRN PRN Reason: Saline Flush Tizanidine HCl (Tizanidine Hcl 4 Mg Tab) 4 mg PO TID [facility] Last Admin: 03/03/20 15:06 Dose: 4 mg Documented by: Tramadol HCl (Tramadol Hcl 50 Mg Tab) 50 mg PO Q4H PRN PRN Reason: Mild Pain (1-3) Last Admin: 02/28/20 13:54 Dose: 50 mg Documented by: Vital Signs & Weight: Vital Signs Temp Pulse Pulse Pulse Resp BP BP 03/03/20 15:03 98.7 F 90 18 03/03/20 13:56 87 75 132/62 128/83 03/03/20 10:58 98.1 F 81 16 03/03/20 08:57 63 72 148/77 H 124/70 03/03/20 07:15 97.8 F 64 17 BP Pulse Ox 03/03/20 15:03 136/65 98 03/03/20 13:56 03/03/20 10:58 119/54 L 96 03/03/20 08:57 03/03/20 07:15 142/71 H 96 Weight 126 lb - Physical Exam HEENT: normocephaly Neck: supple neck, no JVD/HJR Cardiac: irregularly regular Lungs: clear to auscultation, normal breath sounds Neuro: grossly intact Abdomen: unremarkable Extremities: no cyanosis, no clubbing, no edema - Labs Result Diagrams: 03/03/20 04:13 03/01/20 04:57 Troponin/CKMB Troponin I Less than 0.010 ng/mL (< 0.028) 02/29/20 21:10 - Telemetry Supraventricular conduction: atrial fibrillation (rate controlled) - Assessment/Plan Assessment/Plan: 1. Atrial fib. rate controlled. Resume betablockers. Continue anticoagulation. 2. S/P AVR,MVR,CABG. stable. 3. Nephrolithiasis. 4. HTN
[2020-03-03] MEDS: traMADol HCl 50 MG TAB PO PRN (20:56)
[2020-03-03] MEDS: Atorvastatin Calcium 40 MG TAB PO SCH (20:57)
[2020-03-03] MEDS: Cefdinir 300 MG CAP PO SCH (20:57)
[2020-03-03] MEDS: Cipro 250 MG TAB PO SCH (20:57)
[2020-03-03] MEDS: Apixaban 2.5 MG TAB PO SCH (20:57)
[2020-03-04] MEDS: HYDROcodone/Acetaminophen 5/325 mg Tablet PO PRN ×3 (00:33→12:30)
[2020-03-04 04:14] LABS: Hemoglobin 10.2 g/dL (12.0-16.0); Platelet Count 290 thou/uL (130-400)
[2020-03-04] MEDS: Senokot S 8.6-50 MG TAB PO PRN (05:46)
[2020-03-04] MEDS: Levothyroxine Sodium 75 MCG TAB PO SCH (05:46)
[2020-03-04] MEDS: Apixaban 2.5 MG TAB PO SCH ×2 (08:46→21:16)
[2020-03-04] MEDS: tiZANidine HCl 4 MG TAB PO SCH ×3 (08:46→21:16)
[2020-03-04] MEDS: Aspirin Chewable 81 MG TAB PO SCH (08:46)
[2020-03-04] MEDS: Cefdinir 300 MG CAP PO SCH ×2 (08:46→21:15)
[2020-03-04] MEDS: metFORMIN 500 MG TAB PO SCH ×2 (08:46→17:25)
--- NOTE | 2020-03-04 08:54 | PRG ---
DATE OF SERVICE: 03/04/2020 This patient is now 2 days out from ureteroscopy, laser lithotripsy of 2 stones. I saw her yesterday and she was having a lot of urinary frequency, urgency, voiding small amounts, not getting up to urinate, but going in a diaper. Her bladder was not distended on bladder ultrasound, so I think it was probably just frequency or urgency related to the procedure. It seems like that is improving. Her daughter states that when she urinates now, she is urinating a larger volume. She is still having some issues with back pain and back spasm related probably to her compression fracture. She has been staying in bed most of the time because of that. It is possible she would benefit from rehab evaluation and physical therapy. She certainly has become somewhat deconditioned from this. At this point, from my standpoint, she could go home in relationship to the stones. I would like to keep her on a low dose of antibiotic, Macrobid 1 p.o. a day until the stent is out. I will dictate another note today with a date and time for her to come back to see me. We will leave the stent in for probably 2 to 3 weeks before getting it out. I think that can all be done in the office. ADDENDUM: I have an appointment for Ms. Dewey to see me in my office on March 18 at 1:30 in the afternoon, she could be given that at the time of her discharge. Job ID: [id number]
--- NOTE | 2020-03-04 17:37 | PDOC.HOSPP ---
- Subjective Encounter Date: 03/04/20 Encounter Time: 10:00 Subjective: Patient seen for follow-up regarding nephrolithiasis. Has lower extremity edema. - Objective Vital Signs & Weight: Vital Signs (12 hours) Temp Pulse Resp BP BP BP Pulse Ox 03/04/20 15:30 98.4 F 92 16 130/73 98 03/04/20 11:49 97.9 F 61 17 95/55 L 96 03/04/20 11:20 97/55 L 03/04/20 07:30 98.1 F 79 16 143/66 H 92 L Weight Weight 126 lb I&O: 03/03/20 03/04/20 03/05/20 06:59 06:59 06:59 Intake Total 2480 1544 Output Total 825 1200 Balance 1655 344 Result Diagrams: 03/04/20 03:57 03/04/20 03:57 Additional Labs: Accuchecks 03/04/20 03/04/20 03/04/20 17:23 10:35 05:48 POC Glucose 109 H 136 H 110 H 03/03/20 20:21 POC Glucose 109 H I reviewed patient's labs and MAR EKG Reviewed by me: Yes (Asael lopez on telemetry) Hospitalist ROS - Review of Systems Cardiovascular: reports: edema. denies: chest pain, palpitations, orthopnea, paroxysmal noc. dyspnea, light headedness Genitourinary: denies: dysuria, frequency, incontinence, hematuria, retention - Medication Medications: Active Medications Generic Name Dose Route Start Last Admin Trade Name Freq PRN Reason Stop Dose Admin Acetaminophen 650 mg 03/01/20 18:36 03/03/20 10:49 Acetaminophen 325 Mg Tab PO 650 mg Q6H PRN Administration Headache/Fever or Pain Hydrocodone Bitart/Acetaminophen 1 tab 02/27/20 20:26 03/04/20 12:30 Hydrocodone/Acetaminophen 5/325 Mg Tablet PO 1 tab Q4H PRN Administration Moderate Pain (4-6) Apixaban 2.5 mg 03/03/20 21:00 03/04/20 08:46 Apixaban 2.5 Mg Tab PO 2.5 mg BID DEB Administration Aspirin 81 mg 02/28/20 09:00 03/04/20 08:46 Aspirin Chewable 81 Mg Tab PO 81 mg DAILY DEB Administration Atorvastatin Calcium 40 mg 02/27/20 21:00 03/03/20 20:57 Atorvastatin Calcium 40 Mg Tab PO 40 mg HS DEB Administration Bisacodyl 10 mg 02/28/20 09:46 02/28/20 12:04 Bisacodyl 10 Mg Supp AR 10 mg DAILYPRN PRN Administration Constipation Bisacodyl 10 mg 02/28/20 09:46 02/28/20 13:54 Bisacodyl 5 Mg Tab PO 10 mg DAILYPRN PRN Administration Constipation Cefdinir 300 mg 03/03/20 21:00 03/04/20 08:46 Cefdinir 300 Mg Cap PO 300 mg BID DEB Administration Ciprofloxacin 250 mg 02/28/20 20:00 03/03/20 20:57 Cipro 250 Mg Tab PO 250 mg 2000 DEB Administration Levothyroxine Sodium 75 mcg 02/28/20 06:00 03/04/20 05:46 Levothyroxine Sodium 75 Mcg Tab PO 75 mcg 0600 DEB Administration Metformin HCl 500 mg 02/28/20 17:00 03/04/20 17:25 Metformin 500 Mg Tab PO 500 mg BID-WM DEB Administration Senna/Docusate Sodium 2 tab 02/28/20 03:39 03/04/20 05:46 Senokot S 8.6-50 Mg Tab PO 2 tab BID PRN Administration Constipation Tizanidine HCl 4 mg 02/27/20 21:00 03/04/20 15:35 Tizanidine Hcl 4 Mg Tab PO 4 mg TID DEB Administration Tramadol HCl 50 mg 02/27/20 19:38 03/03/20 20:56 Tramadol Hcl 50 Mg Tab PO 50 mg Q4H PRN Administration Mild Pain (1-3) - Exam General Appearance: awake alert Eye: anicteric sclera ENT: moist mucosa Neck: supple Heart: irregular Respiratory: CTAB Gastrointestinal: soft, non-tender Extremities - other findings: His lower extremity edema Skin: no rashes Psychiatric: normal affect, normal behavior Hosp A/P - Plan -Assessment (1) Nephrolithiasis Status: Acute (2) Intractable back pain Code(s): M54.9 - DORSALGIA, UNSPECIFIED Status: Acute (3) Vertebral compression fracture Code(s): M48.50XA - COLLAPSED VERTEBRA, NEC, SITE UNSP, INIT Status: Acute (4) Hydroureter Code(s): N13.4 - HYDROURETER Status: Acute (5) Hydronephrosis Code(s): N13.30 - UNSPECIFIED HYDRONEPHROSIS Status: Acute (6) Paroxysmal atrial fibrillation Code(s): I48.0 - PAROXYSMAL ATRIAL FIBRILLATION Status: Chronic (7) hypotension Status: Resolved (8) sinus pauses Status: Resolved - Plan Status post cystoscopy yesterday. Has been started on apixaban and carvedilol. Patient is currently on Omnicef, will change to Macrobid at the time of discharge. Reasonable control of pain. Patient will need home health. Likely home in 24 to 48 hours.
--- NOTE | 2020-03-04 19:45 | PDOC.CPN ---
- Subjective Date: 03/04/20 Time: 11:00 - Review of Systems General: denies: fever/chills, weight/appetite/sleep changes, night sweats, fatigue Respiratory: reports: shortness of breath Cardiovascular: denies: chest pain, palpitation, edema, paroxysmal nocturnal dyspnea, orthopnea Gastrointestinal: denies: nausea, vomiting, diarrhea, constipation, abd pain, GI bleeding Musculoskeletal: denies: pain, tenderness, stiffness, swelling, arthritis/arthralgias Neurological: reports: weakness - Objective Allergies/Adverse Reactions: Allergies Allergy/AdvReac Type Severity Reaction Status Date / Time heparin Allergy Intermediate Verified 02/27/20 18:02 CONTRAST DYE Allergy Intermediate SHAKING/ Uncoded 02/27/20 18:02 PT COULD NOT SPEAK Visit Medications: Current Medications Acetaminophen (Acetaminophen 325 Mg Tab) 650 mg PO Q6H PRN PRN Reason: Headache/Fever or Pain Last Admin: 03/03/20 10:49 Dose: 650 mg Documented by: Hydrocodone Bitart/Acetaminophen (Hydrocodone/Acetaminophen 5/325 Mg Tablet) 1 tab PO Q4H PRN PRN Reason: Moderate Pain (4-6) Last Admin: 03/04/20 12:30 Dose: 1 tab Documented by: Apixaban (Apixaban 2.5 Mg Tab) 2.5 mg PO BID [facility] Last Admin: 03/04/20 08:46 Dose: 2.5 mg Documented by: Aspirin (Aspirin Chewable 81 Mg Tab) 81 mg PO DAILY [facility] Last Admin: 03/04/20 08:46 Dose: 81 mg Documented by: Atorvastatin Calcium (Atorvastatin Calcium 40 Mg Tab) 40 mg PO HS [facility] Last Admin: 03/03/20 20:57 Dose: 40 mg Documented by: Bisacodyl (Bisacodyl 10 Mg Supp) 10 mg RI DAILYPRN PRN PRN Reason: Constipation Last Admin: 02/28/20 12:04 Dose: 10 mg Documented by: Bisacodyl (Bisacodyl 5 Mg Tab) 10 mg PO DAILYPRN PRN PRN Reason: Constipation Last Admin: 02/28/20 13:54 Dose: 10 mg Documented by: Cefdinir (Cefdinir 300 Mg Cap) 300 mg PO BID [facility] Last Admin: 03/04/20 08:46 Dose: 300 mg Documented by: Ciprofloxacin (Cipro 250 Mg Tab) 250 mg PO 1999 [facility] Last Admin: 03/03/20 20:57 Dose: 250 mg Documented by: Dextrose/Water (Dextrose 50% Abboject 50 Ml Syringe) 25 gm SLOW IVP PRN PRN PRN Reason: Hypoglycemia Glucagon (Glucagon 1 Mg/Ml Vial) 1 mg IM PRN PRN PRN Reason: Hypoglycemia Dextrose/Water (D5w) 1,000 mls @ 0 mls/hr IV .Q0M PRN PRN Reason: Hypoglycemia Insulin Human Lispro (Humalog 300 Units/3 Ml Vial) 0 units SC .MILD SLIDING SCALE PRN PRN Reason: Mild Correctional Scale Levothyroxine Sodium (Levothyroxine Sodium 75 Mcg Tab) 75 mcg PO 0600 [facility] Last Admin: 03/04/20 05:46 Dose: 75 mcg Documented by: Metformin HCl (Metformin 500 Mg Tab) 500 mg PO BID-[facility] Last Admin: 03/04/20 17:25 Dose: 500 mg Documented by: Mineral Oil (Mineral Oil Enema) 133 ml RI DAILY PRN PRN Reason: Constipation Miscellaneous Medication (Pharmacy To Dose Abx) 1 each IVPB PRN PRN PRN Reason: Pharmacy to dose Morphine Sulfate (Morphine 2 Mg/Ml Vial) 2 mg SLOW IVP Q4H PRN PRN Reason: Severe Pain (7-10) Senna/Docusate Sodium (Senokot S 8.6-50 Mg Tab) 2 tab PO BID PRN PRN Reason: Constipation Last Admin: 03/04/20 05:46 Dose: 2 tab Documented by: Sodium Chloride (Flush - Normal Saline 10 Ml Syringe) 10 ml IVF Q12HR PRN PRN Reason: Saline Flush Tizanidine HCl (Tizanidine Hcl 4 Mg Tab) 4 mg PO TID [facility] Last Admin: 03/04/20 15:35 Dose: 4 mg Documented by: Tramadol HCl (Tramadol Hcl 50 Mg Tab) 50 mg PO Q4H PRN PRN Reason: Mild Pain (1-3) Last Admin: 03/03/20 20:56 Dose: 50 mg Documented by: Vital Signs & Weight: Vital Signs Temp Pulse Resp BP BP BP Pulse Ox 03/04/20 15:30 98.4 F 92 16 130/73 98 03/04/20 11:49 97.9 F 61 17 95/55 L 96 03/04/20 11:20 97/55 L Weight 126 lb - Physical Exam HEENT: normocephaly Neck: midline trachea, no JVD/HJR Cardiac: irregularly regular Lungs: clear to auscultation Neuro: grossly intact Abdomen: unremarkable Extremities: other: (trace edema) Musculoskeletal: normal range of motion - Labs Result Diagrams: 03/04/20 03:57 03/04/20 03:57 Troponin/CKMB Troponin I Less than 0.010 ng/mL (< 0.028) 02/29/20 21:10 - Telemetry Supraventricular conduction: atrial fibrillation - Assessment/Plan Assessment/Plan: 1. Atrial fib. rate controlled. Cont. betablockers. Continue anticoagulation. 2. S/P AVR,MVR,CABG. stable. 3. Nephrolithiasis. 4. HTN
[2020-03-04] MEDS: traMADol HCl 50 MG TAB PO PRN (21:15)
[2020-03-04] MEDS: Atorvastatin Calcium 40 MG TAB PO SCH (21:16)
[2020-03-04] MEDS: Cipro 250 MG TAB PO SCH (21:16)
[2020-03-05] MEDS: Levothyroxine Sodium 75 MCG TAB PO SCH (06:27)
[2020-03-05] MEDS: tiZANidine HCl 4 MG TAB PO SCH ×2 (09:27→15:23)
[2020-03-05] MEDS: Aspirin Chewable 81 MG TAB PO SCH (09:27)
[2020-03-05] MEDS: Cefdinir 300 MG CAP PO SCH (09:28)
[2020-03-05] MEDS: Apixaban 2.5 MG TAB PO SCH (09:28)
[2020-03-05] MEDS: metFORMIN 500 MG TAB PO SCH (09:28)
[2020-03-05] MEDS: traMADol HCl 50 MG TAB PO PRN ×2 (09:55→15:23)
[2020-03-05] MEDS ORDERED: Metoprolol Tartrate 25 MG TAB PO SCH ×2 (10:00→21:00)
[2020-03-05] MEDS ORDERED: Cyclobenzaprine 10 MG TAB PO PRN (13:38)
[2020-03-05 14:21] VITALS: BP 138/69; TEMP 98.7
--- NOTE | 2020-03-06 01:10 | DIS ---
DATE OF ADMISSION: 02/27/2020 DATE OF DISCHARGE: 03/05/2020 PRIMARY CARE PROVIDER: Dr. Riaz Cali. DISCHARGE DIAGNOSES: 1. Nephrolithiasis. 2. Vertebral compression fracture. 3. Hydroureter. 4. Hydronephrosis. 5. Intractable back pain. 6. Sinus pauses. CONDITION OF THE PATIENT ON THE DAY OF DISCHARGE: Stable. I assessed Ms. Dewey on the day of discharge. She denies any chest pain or shortness of breath. Vital signs are stable. S1 and S2 are heard, irregular. Lungs are clear to auscultation bilaterally. CONSULTATIONS DURING THIS HOSPITALIZATION: 1. Urology, Dr. Silva. 2. Cardiology, Dr. Olivarez. 3. Neurosurgery, Mr. Maycol Mathis. HOSPITAL COURSE: Ms. Dewey is a pleasant 79-year-old lady, who was admitted to [facility] on February 27 2020, for nephrolithiasis and vertebral compression fracture. They recommended TLSO brace for pain while walking or standing. She was also seen by Urology Service. She was started on Lovenox bridge and the plan was to do cystoscopy and lithotripsy. On February 28, her blood pressure dropped. Lilo lobo was called. She was transferred to telemetry floor. She improved with antibiotics and intravenous fluids. On March 02, she underwent cystoscopy, removal of left stent, left retrograde, left rigid ureteroscopy, laser lithotripsy and stone retrieval of a left lower third ureteral stone, measuring 6 to 8 mm and much larger, mid to proximal ureteral stone measuring over 1.5 cm. She did have some smaller stone fragment up in her kidney, which was not operated on at this time. She was also seen by Cardiology Service for sinus pauses. It was felt that these pauses were clinically insignificant. Her antihypertensives were on hold because of the episode of hypotension. She is being restarted on metoprolol. 2D echocardiogram during this hospitalization showed left ventricular ejection fraction of 55% to 60% Arrangements are being made for home health prior to discharge. DISCHARGE INSTRUCTIONS: 1. Post acute care followup with Dr. Silva on March 18, 2020 at 1:30 p.m. and with primary care provider in 3 days and with Cardiology Service in 2 to 3 weeks. 2. Activity: As tolerated. 3. Diet: Heart healthy. DISCHARGE DESTINATION: Home. TIME SPENT: Total amount of time spent coordinating this discharge: 32 minutes. DISCHARGE MEDICATIONS: 1. Aspirin 81 mg daily. 2. Apixaban 2.5 mg 2 times a day. 3. Metformin 500 mg 2 times a day. 4. Levothyroxine 75 mcg daily. 5. Lipitor 40 mg at bedtime. 6. Lopressor 12.5 mg 2 times a day. 7. Macrobid 100 mg daily, 30 doses prescribed, to be taken until cleared by Urology. 8. Senna 8.6 mg 2 times a day. 9. Tramadol 50 mg every 4 hours as needed, 50 doses prescribed. 10. Zanaflex 4 mg 3 times a day as needed, 50 doses prescribed. Many thanks for allowing me to participate in your patient's care. Please feel free to contact me with any questions or concerns. Job ID: [id number]
[2020-03-11 19:37] LABS: CA Oxalate Dihydrate 20 % (.); CA Oxalate Monohydrate 80 % (.); Color Tan (.); Stone Weight 233 mg (.)
== END 2020-03-05 16:05 | disposition home health service (06) | DRG 669 ==
LOC: ONC 17:52 → OBSVTOIN 20:24 → 2NO 02-29 12:08
PROVIDERS: ADMIT Internal Medicine; ATTEND Internal Medicine
PROC: 0TC78ZZ Extirpation of Matter from Left Ureter, Via Natural or Artificial Opening Endoscopic (ICD-10-PCS; principal; 2020-03-02)
PROC: 0TP98DZ Removal of Intraluminal Device from Ureter, Via Natural or Artificial Opening Endoscopic (ICD-10-PCS; 2020-03-02)
PROC: BT1FYZZ Fluoroscopy of Left Kidney, Ureter and Bladder using Other Contrast (ICD-10-PCS; 2020-03-02)
PROC: 0TJ98ZZ Inspection of Ureter, Via Natural or Artificial Opening Endoscopic (ICD-10-PCS; 2020-03-02)
DX: N13.2 Hydronephrosis with renal and ureteral calculous obstruction (principal); M48.54XA Collapsed vertebra, not elsewhere classified, thoracic region, initial encounter for fracture; Z20.828 Contact with and (suspected) exposure to other viral communicable diseases; I10 Essential (primary) hypertension; K59.00 Constipation, unspecified; E78.5 Hyperlipidemia, unspecified; I48.0 Paroxysmal atrial fibrillation; E11.9 Type 2 diabetes mellitus without complications; I25.10 Atherosclerotic heart disease of native coronary artery without angina pectoris; E03.9 Hypothyroidism, unspecified; I95.9 Hypotension, unspecified; I49.5 Sick sinus syndrome; Z79.01 Long term (current) use of anticoagulants; Z90.49 Acquired absence of other specified parts of digestive tract; Z90.710 Acquired absence of both cervix and uterus; Z87.891 Personal history of nicotine dependence; Z95.1 Presence of aortocoronary bypass graft; Z91.041 Radiographic dye allergy status; Z79.84 Long term (current) use of oral hypoglycemic drugs; Z95.2 Presence of prosthetic heart valve; Z79.82 Long term (current) use of aspirin; Z79.899 Other long term (current) drug therapy
CPT/HCPCS: 36415; 36416; 71045; 74420; 80053; 80069; 80202; 81001; 82365; 82565; 83605; 83735; 84484; 85014; 85018; 85025; 85049; 87040; 87086; 87635; 88300; 93005; 93010; 93306; J0696; J1160; J1650; J2175; J2185; J2405; J2704; J2930; J3010; J3370; J3475; J3490; J7050; Q9967; U0003

== ENCOUNTER 2020-09-15 17:40 | Inpatient (IN) | payer MEDICARE ==
[~2020-09-15 17:40] MED LIST: Iopamidol-370 76% 500 ML 1 ML ONE
[2020-09-15 18:14] LABS: #Eosinphils 0.2 thou/uL (0.0-0.7); #Lymphocytes 1.4 thou/uL (1.20-3.40); #Monocytes 0.6 thou/uL (0.11-0.59); #Neutrophils 8.6 thou/uL (1.40-6.50); %Basophils 0.2 % (0.0-1.0); %Eosinophils 1.7 % (0.0-10.0); %Lymphocytes 13.3 % (21.0-51.0); %Monocytes 5.8 % (0.0-10.0); Hemoglobin 11.5 g/dL (12.0-16.0); Mean Corpuscular HGB CONC 31.5 g/dL (32.0-36.0); Mean Corpuscular Hemoglobin 25.2 pg (27.0-31.0); Mean Corpuscular Volume 79.9 fL (78.0-98.0); Platelet Count 191 thou/uL (130-400); Red Blood Cell (RBC) Count 4.55 mill/uL (4.20-5.40); White Blood Cell (WBC) Count 10.9 thou/uL (4.8-10.8)
[2020-09-15 18:38] LABS: ALT (SGPT) 12 U/L (8-55); AST (SGOT) 20 U/L (5-34); Albumin 4.2 g/dL (3.4-4.8); Alkaline Phosphatase 101 U/L (40-110); Anion Gap 13 mmol/L (10-20); BUN (Urea Nitrogen) 14 mg/dL (9.8-20.1); Bilirubin, Total 0.7 mg/dL (0.2-1.2); Calc. Creatinine Clearance 0 mL/min (70-130); Calcium 9.3 mg/dL (7.8-10.44); Carbon Dioxide 27 mmol/L (23-31); Chloride 104 mmol/L (98-107); Globulin 3.3 g/dL (2.4-3.5); Glucose 107 mg/dL (83-110); Lipase 575 U/L (8-78); Potassium 4.5 mmol/L (3.5-5.1); Protein, Total 7.5 g/dL (5.8-8.1); Sodium 139 mmol/L (136-145)
[2020-09-15] MEDS ORDERED: Ondansetron PF 4 MG/2 ML Vial ONE (18:43)
[2020-09-15] MEDS ORDERED: diphenhydrAMINE 50 MG/ML VIAL ONE ×2 (18:46→19:41)
[2020-09-15] MEDS ORDERED: methylPREDNISolone Sod Succ/PF 125 MG/2 ML VIAL ONE (18:46)
[2020-09-15 18:57] LABS: Bacteria/HPF None Seen HPF (None Seen); Bilirubin Negative (Negative); Blood, Urine 3+ (Negative); Clarity Clear (Clear); Glucose, Urine (Dipstick) Normal (Negative); Ketone, Urine Negative (Negative); Leukocyte Negative Leu/uL (Negative); Nitrite Negative (Negative); Protein, Urine (Dipstick) Negative (Neg-Trace); RBC/HPF Greater than 50 HPF (0-3); Specific Gravity, Urine 1.012 (1.002-1.036); Squamous Epithelial None Seen HPF (0-3); Urobilinogen Normal mg/dL (Less than 2); WBC/HPF 0-3 HPF (0-3); pH, Urine 5.5 (5.0-9.0)
[2020-09-15] MEDS ORDERED: Famotidine/PF 20 mg/2ml Vial ONE (18:57)
[2020-09-15] MEDS ORDERED: Lorazepam 2 MG/ML VIAL ONE (19:48)
[2020-09-15] MEDS ORDERED: Acetaminophen 325 MG TAB PO PRN (22:07)
[2020-09-15] MEDS ORDERED: Ondansetron PF 4 MG/2 ML Vial IVP PRN (22:07)
[2020-09-15] MEDS ORDERED: Dextrose 50% Abboject 50 ML SYRINGE SLOW IVP PRN (22:10)
[2020-09-15] MEDS ORDERED: Dextrose 5% in Water 1,000 ML IV PRN (22:10)
[2020-09-15] MEDS ORDERED: HumaLOG 300 UNITS/3 ML VIAL SC PRN (22:10)
[2020-09-15] MEDS ORDERED: Simethicone Chewable 80 MG TAB PO PRN (22:11)
[2020-09-15] MEDS ORDERED: Pantoprazole 40 MG VIAL IVP SCH (22:30)
[2020-09-15] MEDS ORDERED: Sodium Chloride 0.9% (PF) 10 ML VIAL FS PRN (22:30)
[2020-09-16] MEDS: Sodium Chloride 0.9% 1,000 ML IV SCH ×3 (02:00→20:23)
[2020-09-16] MEDS ORDERED: Pantoprazole 40 MG VIAL ONE (03:30)
[2020-09-16 05:53] LABS: #Lymphocytes 0.8 thou/uL (1.20-3.40); #Neutrophils 5.6 thou/uL (1.40-6.50); %Basophils 0.3 % (0.0-1.0); %Eosinophils 0.1 % (0.0-10.0); %Lymphocytes 12.5 % (21.0-51.0); %Monocytes 0.6 % (0.0-10.0); %Neutrophils 86.5 % (42.0-75.0); Mean Corpuscular HGB CONC 31.6 g/dL (32.0-36.0); Mean Corpuscular Hemoglobin 25.3 pg (27.0-31.0); Mean Corpuscular Volume 80.1 fL (78.0-98.0); Mean Platelet Volume 8.2 fL (7.4-10.4); Platelet Count 174 thou/uL (130-400); Red Blood Cell (RBC) Count 4.33 mill/uL (4.20-5.40); White Blood Cell (WBC) Count 6.4 thou/uL (4.8-10.8)
[2020-09-16 05:54] LABS: Anion Gap 14 mmol/L (10-20); BUN (Urea Nitrogen) 16 mg/dL (9.8-20.1); Calc. Creatinine Clearance 0 mL/min (70-130); Calcium 9.2 mg/dL (7.8-10.44); Carbon Dioxide 27 mmol/L (23-31); Chloride 106 mmol/L (98-107); Glucose 187 mg/dL (83-110); Sodium 143 mmol/L (136-145)
[2020-09-16 06:33] LABS: SARS-CoV-2 PCR by NAA Not Detected (NotDetected)
[2020-09-16 17:29] VITALS: BMI 22.3
[2020-09-16] MEDS: Pantoprazole 40 MG VIAL IVP SCH (22:00)
[2020-09-17] MEDS: Sodium Chloride 0.9% 1,000 ML IV SCH ×2 (03:54→15:30)
[2020-09-17 08:48] LABS: #Lymphocytes 1.9 thou/uL (1.20-3.40); #Monocytes 0.8 thou/uL (0.11-0.59); #Neutrophils 8.4 thou/uL (1.40-6.50); %Basophils 0.2 % (0.0-1.0); %Eosinophils 0.3 % (0.0-10.0); %Lymphocytes 16.7 % (21.0-51.0); %Monocytes 7.3 % (0.0-10.0); %Neutrophils 75.5 % (42.0-75.0); Mean Corpuscular HGB CONC 31.7 g/dL (32.0-36.0); Mean Corpuscular Hemoglobin 25.5 pg (27.0-31.0); Mean Corpuscular Volume 80.4 fL (78.0-98.0); Mean Platelet Volume 8.1 fL (7.4-10.4); Platelet Count 180 thou/uL (130-400); RBC Distribution Width 15.4 % (11.5-14.5); Red Blood Cell (RBC) Count 4.32 mill/uL (4.20-5.40); White Blood Cell (WBC) Count 11.2 thou/uL (4.8-10.8)
[2020-09-17 09:11] LABS: Anion Gap 12 mmol/L (10-20); BUN (Urea Nitrogen) 25 mg/dL (9.8-20.1); Calc. Creatinine Clearance 51 mL/min (70-130); Carbon Dioxide 25 mmol/L (23-31); Chloride 109 mmol/L (98-107); Glucose 116 mg/dL (83-110); Iron 27 ug/dL (50-170); Iron Binding Capacity, Total 393 mcg/dL (265-497); Lipase 16 U/L (8-78); Potassium 3.6 mmol/L (3.5-5.1); Sodium 142 mmol/L (136-145)
[2020-09-17 09:12] LABS: ALT (SGPT) 20 U/L (8-55); AST (SGOT) 36 U/L (5-34); Albumin 4.1 g/dL (3.4-4.8); Alkaline Phosphatase 86 U/L (40-110); Bilirubin, Direct 0.4 mg/dL (0.1-0.3); Bilirubin, Total 0.8 mg/dL (0.2-1.2); Protein, Total 7.1 g/dL (5.8-8.1)
[2020-09-17] MEDS: Metoprolol Tartrate 25 MG TAB PO SCH ×2 (09:49→22:38)
[2020-09-17] MEDS ORDERED: Fentanyl 100 MCG/2 ML VIAL ONE (12:11)
[2020-09-17] MEDS ORDERED: Ondansetron HCl/PF 4 MG/2 ML Vial IVP PRN (12:13)
[2020-09-17] MEDS ORDERED: Promethazine HCl 25 MG/ML VIAL IM PRN (12:13)
[2020-09-17] MEDS ORDERED: Promethazine HCl 25 MG/ML VIAL SLOW IVP PRN (12:13)
[2020-09-17] MEDS ORDERED: PROPOFOL 200 MG/20 ML VIAL ONE (12:21)
[2020-09-17] MEDS: Levothyroxine Sodium 75 MCG TAB PO SCH (14:25)
[2020-09-17] MEDS ORDERED: methylPREDNISolone Sod Succ 40 MG VIAL IVP SCH (16:45)
[2020-09-17] MEDS: Apixaban 2.5 MG TAB PO SCH (22:38)
[2020-09-17] MEDS: Atorvastatin Calcium 40 MG TAB PO SCH (22:38)
[2020-09-17] MEDS: Pantoprazole 40 MG VIAL IVP SCH (22:39)
[2020-09-18] MEDS: Sodium Chloride 0.9% 1,000 ML IV SCH ×3 (01:34→22:51)
[2020-09-18 06:15] LABS: #Monocytes 0.3 thou/uL (0.11-0.59); #Neutrophils 6.9 thou/uL (1.40-6.50); %Basophils 0.6 % (0.0-1.0); %Eosinophils 0.1 % (0.0-10.0); %Lymphocytes 11.7 % (21.0-51.0); %Monocytes 3.6 % (0.0-10.0); %Neutrophils 84.1 % (42.0-75.0); Hemoglobin 9.8 g/dL (12.0-16.0); Mean Corpuscular Hemoglobin 25.8 pg (27.0-31.0); Mean Corpuscular Volume 80.5 fL (78.0-98.0); Mean Platelet Volume 8.3 fL (7.4-10.4); Platelet Count 143 thou/uL (130-400); RBC Distribution Width 15.1 % (11.5-14.5); Red Blood Cell (RBC) Count 3.81 mill/uL (4.20-5.40); White Blood Cell (WBC) Count 8.2 thou/uL (4.8-10.8)
[2020-09-18 06:38] LABS: Anion Gap 11 mmol/L (10-20); BUN (Urea Nitrogen) 14 mg/dL (9.8-20.1); Calc. Creatinine Clearance 60 mL/min (70-130); Calcium 8.3 mg/dL (7.8-10.44); Carbon Dioxide 23 mmol/L (23-31); Chloride 108 mmol/L (98-107); Glucose 140 mg/dL (83-110); Potassium 4.3 mmol/L (3.5-5.1); Sodium 138 mmol/L (136-145)
[2020-09-18] MEDS: Levothyroxine Sodium 75 MCG TAB PO SCH (08:55)
[2020-09-18] MEDS: Metoprolol Tartrate 25 MG TAB PO SCH ×2 (08:55→22:47)
[2020-09-18] MEDS: Apixaban 2.5 MG TAB PO SCH ×2 (08:55→22:47)
[2020-09-18] MEDS ORDERED: Morphine 2 MG/ML VIAL SLOW IVP PRN (15:04)
[2020-09-18] MEDS: Pantoprazole 40 MG VIAL IVP SCH (22:48)
[2020-09-18] MEDS: Atorvastatin Calcium 40 MG TAB PO SCH (22:48)
[2020-09-19] MEDS: Levothyroxine Sodium 75 MCG TAB PO SCH (08:44)
[2020-09-19] MEDS: Apixaban 2.5 MG TAB PO SCH ×2 (08:44→21:03)
[2020-09-19] MEDS: Metoprolol Tartrate 25 MG TAB PO SCH ×2 (08:44→20:59)
[2020-09-19] MEDS: Sodium Chloride 0.9% 1,000 ML IV SCH ×2 (08:45→17:28)
[2020-09-19] MEDS: Atorvastatin Calcium 40 MG TAB PO SCH (21:00)
[2020-09-19] MEDS: Pantoprazole 40 MG VIAL IVP SCH (21:04)
[2020-09-20] MEDS: Sodium Chloride 0.9% 1,000 ML IV SCH (04:37)
[2020-09-20] MEDS: Levothyroxine Sodium 75 MCG TAB PO SCH (08:52)
[2020-09-20] MEDS: Apixaban 2.5 MG TAB PO SCH (08:52)
[2020-09-20] MEDS: Metoprolol Tartrate 25 MG TAB PO SCH (08:52)
[2020-09-20 08:56] VITALS: BP 149/90; TEMP 97.8
== END 2020-09-20 11:29 | disposition home or self-care (01) | DRG 440 ==
LOC: ERS 17:40 → UNDOADMOB 21:01 → INTOOBSV 21:01 → ERHOLD 21:01 → OBSVTOIN 21:01 → T4-A 09-16 15:11 → ERHOLD 09-16 15:11 → T4-A 09-17 13:39 → OBSVTOIN 09-17 13:39 → ERHOLD 09-17 13:39 → UNDODISIN 09-20 11:29
PROVIDERS: ADMIT Internal Medicine; ATTEND Family Medicine
PROC: 0DJ08ZZ Inspection of Upper Intestinal Tract, Via Natural or Artificial Opening Endoscopic (ICD-10-PCS; principal; 2020-09-17)
DX: K85.90 Acute pancreatitis without necrosis or infection, unspecified (principal); I10 Essential (primary) hypertension; E78.5 Hyperlipidemia, unspecified; I48.0 Paroxysmal atrial fibrillation; E11.9 Type 2 diabetes mellitus without complications; I25.10 Atherosclerotic heart disease of native coronary artery without angina pectoris; E03.9 Hypothyroidism, unspecified; D64.9 Anemia, unspecified; Z88.9 Allergy status to unspecified drugs, medicaments and biological substances; Z91.041 Radiographic dye allergy status; Z79.01 Long term (current) use of anticoagulants; Z79.82 Long term (current) use of aspirin; Z79.84 Long term (current) use of oral hypoglycemic drugs; Z95.1 Presence of aortocoronary bypass graft; Z90.49 Acquired absence of other specified parts of digestive tract; Z90.710 Acquired absence of both cervix and uterus; Z95.2 Presence of prosthetic heart valve; Z87.891 Personal history of nicotine dependence; Z80.9 Family history of malignant neoplasm, unspecified; T50.8X5A Adverse effect of diagnostic agents, initial encounter
CPT/HCPCS: 36415; 36416; 70450; 71045; 74177; 80048; 80053; 80076; 81003; 81015; 82728; 83540; 83550; 83690; 84478; 85025; 87635; 93005; 96374; 96375; 96376; C9113; G0378; J1200; J2060; J2405; J2704; J2920; J2930; J3010; Q9967; S0028; U0003; U0005

== ENCOUNTER 2020-11-05 10:15 | Outpatient (CLI) | payer MEDICARE | END 2020-11-05 10:16 | disposition home or self-care (01) | LOC: NM 10:15 | PROVIDERS: ATTEND Urology | DX: N13.2 Hydronephrosis with renal and ureteral calculous obstruction (principal) | CPT/HCPCS: 78708; A4641; A9562 ==

== ENCOUNTER 2021-03-19 12:29 | Outpatient (CLI) | payer MEDICARE ==
[2021-03-19 14:14] LABS: #Basophils 0.1 10x3/uL (0.0-0.2); #Eosinphils 0.2 10x3/uL (0.0-0.5); #Monocytes 0.9 10x3/uL (0.0-1.1); #Neutrophils 6.5 10x3/uL (1.5-8.4); %Basophils 0.5 % (0.0-2.0); %Eosinophils 2.2 % (0.0-6.0); %Lymphocytes 21.2 % (18.0-47.0); %Monocytes 8.9 % (0.0-10.0); %Neutrophils 66.7 % (40.0-75.0); Hemoglobin 11.9 g/dL (12.0-15.5); Mean Corpuscular HGB CONC 31.4 g/dL (32.0-36.0); Mean Corpuscular Hemoglobin 26.2 pg (27.0-33.0); Mean Corpuscular Volume 83.3 fl (81.6-98.3); Mean Platelet Volume 10.3 fl (7.4-10.4); Platelet Count 225 10x3/uL (150-450); RBC Distribution Width 14.5 % (11.5-14.5); Red Blood Cell (RBC) Count 4.55 10x6/uL (3.90-5.03); White Blood Cell (WBC) Count 9.8 10x3/uL (3.5-10.5)
[2021-03-19 14:25] LABS: Anion Gap 14 mmol/L (10-20); BUN (Urea Nitrogen) 11 mg/dL (9.8-20.1); Calc. Creatinine Clearance 0 mL/min (70-130); Calcium 9.6 mg/dL (7.8-10.44); Carbon Dioxide 26 mmol/L (23-31); Chloride 107 mmol/L (98-107); Glucose 100 mg/dL (83-110); Potassium 5.1 mmol/L (3.5-5.1); Sodium 142 mmol/L (136-145)
[2021-03-19 21:14] LABS: SARS-CoV-2 PCR by NAA Not Detected (NotDetected)
== END 2021-03-19 12:30 | disposition home or self-care (01) ==
LOC: LABBT 12:29
PROVIDERS: ATTEND Internal Medicine Cardiovascular Disease
DX: Z01.812 Encounter for preprocedural laboratory examination (principal); I48.91 Unspecified atrial fibrillation; Z20.822 Contact with and (suspected) exposure to COVID-19
CPT/HCPCS: 80048; 85025; U0003; U0005

== ENCOUNTER 2021-03-24 09:47 | Day surgery (SDC) | payer MEDICARE ==
[2021-03-23 11:48] VITALS: BMI 22.3
[2021-03-24] MEDS ORDERED: PROPOFOL 20 ML ONE (12:45)
[2021-03-24] MEDS ORDERED: Midazolam HCl 2 mg/2 ml Vial ONE (13:36)
== END 2021-03-24 15:58 | disposition home or self-care (01) ==
LOC: CCL 09:47
PROVIDERS: ATTEND Internal Medicine Cardiovascular Disease
PROC: B246ZZ4 Ultrasonography of Right and Left Heart, Transesophageal (ICD-10-PCS; principal; 2021-03-24)
DX: I48.19 Other persistent atrial fibrillation (principal); I11.0 Hypertensive heart disease with heart failure; I50.9 Heart failure, unspecified; I07.1 Rheumatic tricuspid insufficiency; R31.9 Hematuria, unspecified; D64.9 Anemia, unspecified; E78.2 Mixed hyperlipidemia; E11.9 Type 2 diabetes mellitus without complications; I48.91 Unspecified atrial fibrillation; E03.9 Hypothyroidism, unspecified; I25.10 Atherosclerotic heart disease of native coronary artery without angina pectoris; I71.4 Abdominal aortic aneurysm, without rupture; Z87.891 Personal history of nicotine dependence; Z79.01 Long term (current) use of anticoagulants; Z79.82 Long term (current) use of aspirin; Z79.84 Long term (current) use of oral hypoglycemic drugs; Z79.899 Other long term (current) drug therapy; Z88.8 Allergy status to other drugs, medicaments and biological substances; Z91.041 Radiographic dye allergy status; Z95.1 Presence of aortocoronary bypass graft; Z95.2 Presence of prosthetic heart valve
CPT/HCPCS: 36416; 93312; J2250; J2704

== ENCOUNTER 2021-05-31 09:06 | Outpatient (CLI) | payer MEDICARE ==
[2021-05-31] MEDS ORDERED: diphenhydrAMINE 50 MG/ML VIAL ONE (10:11)
[2021-05-31] MEDS ORDERED: Famotidine/PF 20 mg/2ml Vial SLOW IVP SCH (10:15)
[2021-05-31] MEDS ORDERED: diphenhydrAMINE 50 MG/ML VIAL IVP SCH (10:15)
[2021-05-31 10:23] LABS: Estimated GFR-MDRD - POC Greater than 90
[2021-05-31] MEDS ORDERED: Iopamidol 370 76% 100 ML VIAL ONE (11:54)
== END 2021-05-31 09:07 | disposition home or self-care (01) ==
LOC: CT 09:06
PROVIDERS: ATTEND Internal Medicine Cardiovascular Disease
DX: I48.91 Unspecified atrial fibrillation (principal)
CPT/HCPCS: 71275; 82565; J1200; Q9967; S0028